=== PATIENT | male | born 1960 | race Caucasian/White ===

== ENCOUNTER → 2016-09-25 | Outpatient (CLI) | payer OTHER ==
[~2016-09-25] MED LIST: ALEV220C2 PO; ANOR1AER IN; ARNU1INH3 IN; COMBAER6 INH; DIVA250T PO; GEMF600T PO; HYDR-4274 PO; HYDR12.55 PO; IPRASOL4 IN; METF500T PO; MIRT30TA3 PO; RISP0.5T3 PO
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
== END ==
LOC: M PAIN 13:20
PROVIDERS: ATTEND Nurse Practitioner Family
DX: G89.29 Other chronic pain (principal); M96.1 Postlaminectomy syndrome, not elsewhere classified; M54.16 Radiculopathy, lumbar region; M54.42 Lumbago with sciatica, left side; J44.9 Chronic obstructive pulmonary disease, unspecified; G47.00 Insomnia, unspecified; E78.00 Pure hypercholesterolemia, unspecified; E11.9 Type 2 diabetes mellitus without complications; F41.9 Anxiety disorder, unspecified; F33.9 Major depressive disorder, recurrent, unspecified; Z87.442 Personal history of urinary calculi; Z79.899 Other long term (current) drug therapy; Z79.51 Long term (current) use of inhaled steroids; Z79.84 Long term (current) use of oral hypoglycemic drugs; F17.210 Nicotine dependence, cigarettes, uncomplicated; F10.21 Alcohol dependence, in remission; F19.21 Other psychoactive substance dependence, in remission

== ENCOUNTER → 2016-10-09 | Outpatient (CLI) | payer OTHER ==
[~2016-10-09] VITALS: Ht 180.3 cm; Wt 120.2 kg
[~2016-10-09] MED LIST changes: +NS 1,000 ML IV ONE; +PROPOFOL 200 MG/20 ML VIAL As Ordered ONE
--- NOTE | 2016-10-09 15:13 | ROOR ---
Patient Name: Patric Drake Procedure Date: 10/09/2016 2:55 PM Date of : 1960 Age: 56 Room: [facility] Gender: Male Note Status: Finalized Procedure: Colonoscopy Indications: Screening for colorectal malignant neoplasm Providers: Alphonse HOPE MD Referring MD: DOMINGO NEGRON NP Requesting Provider: Medicines: Monitored Anesthesia Care Complications: No immediate complications. Procedure: Pre-Anesthesia Assessment: - The heart rate, respiratory rate, oxygen saturations, blood pressure, adequacy of pulmonary ventilation, and response to care were monitored throughout the procedure. The Colonoscope was introduced through the anus and advanced to the cecum, identified by appendiceal orifice and ileocecal valve. The colonoscopy was performed without difficulty. The patient tolerated the procedure well. The quality of the bowel preparation was poor. Findings: The perianal and digital rectal examinations were normal. The entire examined colon appeared normal on direct and retroflexion views. Impression: - Preparation of the colon was poor. - The entire examined colon is normal on direct and retroflexion views. - No specimens collected. Recommendation: - Repeat colonoscopy in 1 year because the bowel preparation was poor. Alphonse Hope MD Alphonse HOPE MD 10/09/2016 3:12:53 PM This report has been signed electronically. Number of Addenda: 0 Note Initiated On: 10/09/2016 2:55 PM Estimated Blood Loss: Estimated blood loss: none.
[2016-10-09 15:38] VITALS: BP 149/92
== END ==
LOC: M OPP 13:22
PROVIDERS: ATTEND Internal Medicine Gastroenterology
DX: Z12.11 Encounter for screening for malignant neoplasm of colon (principal); J44.9 Chronic obstructive pulmonary disease, unspecified; F41.9 Anxiety disorder, unspecified; F32.9 Major depressive disorder, single episode, unspecified; E78.5 Hyperlipidemia, unspecified; E11.9 Type 2 diabetes mellitus without complications; R29.818 Other symptoms and signs involving the nervous system; K92.9 Disease of digestive system, unspecified; J30.2 Other seasonal allergic rhinitis; J30.81 Allergic rhinitis due to animal (cat) (dog) hair and dander; J30.89 Other allergic rhinitis; Z79.84 Long term (current) use of oral hypoglycemic drugs; Z79.899 Other long term (current) drug therapy

== ENCOUNTER → 2016-11-17 | Outpatient (CLI) | payer OTHER ==
[~2016-11-17] MED LIST changes: -HYDR-4274 PO; +HYDR50TA70 PO; -METF500T PO; +METF500T13 PO; -NS 1,000 ML IV ONE; -PROPOFOL 200 MG/20 ML VIAL As Ordered ONE
--- NOTE | 2016-11-17 14:53 | REP ---
REASON: Back pain. Status post laminectomy. COMPARISON EXAMINATION: 12/13/2015. Once again, there is loss of posterior disc space height and disc hydrational signal from L1-2 to L5-S1. Note is again made of a rudimentary disc at S1-2 status quo. [place] disc space hydrational signal loss and disc space height loss is again seen at L5-S1. No abnormal signal has developed in the imaged portion of the spinal cord. Vertebral body height and alignment is unchanged. The marrow signal is again seen to be within normal limits. Modic type 3 endplate changes are seen posteriorly at L5-S1. Gadolinium utilized for the post gadolinium enhanced images 24 mL of ProHance. At the L1-2 level there is no change. There is no disc herniation, foraminal narrowing, or central canal stenosis. Mild degenerative facet joint changes are present bilaterally. At the L2-3 level there is no change. There is a minimal broad based annular bulge. There is no disc herniation, foraminal narrowing, or central canal stenosis. There is mild bilateral facet joint changes status quo. At the L3-4 level a broad based annular bulge is noted status quo. This causes slight compression of the anterior thecal sac which is unchanged. There is no disc extrusion, central canal stenosis, or foraminal narrowing. At the L4-5 level note is again made of a large broad based annular bulge seen in conjunction with degenerative facet joint changes bilaterally and thickening of the ligamentum flava. The factors in concert are causing moderate central canal stenosis which appears to have increased from the prior exam. There is no change in the appearance of the neural foramina. There is no evidence of L4 nerve compression. There is no evidence of an acute disc extrusion. At the L5-S1 level there is a broad based annular bulge seen in conjunction with degenerative facet joint changes bilaterally and thickening of the ligamentum flava. There is an unchanged posterior disc protrusion seen centrally and in the left paracentral region with disc osteophyte formation status quo. The small amount of disc material does migrate inferiorly. This too is unchanged in appearance. Once again, there is some compression of the anterior thecal sac which appears stable. The left S1 nerve compression seen previously appears less and the left and right foraminal nerve compression due to the aforementioned discogenic changes on degenerative facet joint changes appear stable. IMPRESSION: Multilevel discogenic changes with particular attention drawn to the L4-5 and L5-S1 levels as described above. Signed by Ronnell Basilio DO 11/17/2016 04:39 P
== END ==
LOC: M RAD 12:27
PROVIDERS: ATTEND Nurse Practitioner Family
DX: M51.16 Intervertebral disc disorders with radiculopathy, lumbar region (principal); M96.1 Postlaminectomy syndrome, not elsewhere classified

== ENCOUNTER → 2016-11-24 | Outpatient (CLI) | payer OTHER ==
--- NOTE | 2016-12-17 00:29 | ECWPNPC ---
PATIENT NAME: SHABBIR RICO : 1960 GENDER: MALE VISIT DATE: 11/24/2016 DISCHARGE DATE: 11/24/16 1520 VISIT LOCKED DATE TIME: PHYSICIAN: GRANT BLANCHARD RESOURCE: GRANT BLANCHARD REASON FOR APPOINTMENT 1. REVIEW MRI HISTORY OF PRESENT ILLNESS HISTORY OF PRESENT ILLNESS: PAIN THE PATIENT DESCRIBES THE PAIN... FALL RISK SCREENING: SCREENING :NO FALLS IN THE PAST YEAR TODAY'S VISIT: NOTES: RATES PAIN LEVEL 7/10. DESCRIBES PAIN ACHING, STABBING AND THROBBING. PAIN IS CENTERED LEFT SIDE LOW BACK WITH RADIATION TO LEFT LEG TO THE LEVEL OF THE FOOT.. CURRENT MEDICATIONS TAKING HYDROCHLOROTHIAZIDE 12.5 MG TABLET TAKE ONE TABLET BY MOUTH ONCE DAILY ORAL TAKING GEMFIBROZIL 600 MG TABLET TAKE ONE TABLET BY MOUTH TWICE DAILY ORAL TAKING MIRTAZAPINE 30 MG TABLET TAKE ONE TABLET BY MOUTH AT BEDTIME ORAL TAKING DIVALPROEX SODIUM 250 MG TABLET DELAYED RELEASE TAKE THREE TABLETS BY MOUTH AT BEDTIME ORAL TAKING ARNUITY ELLIPTA 200 MCG/ACT AEROSOL POWDER BREATH ACTIVATED INHALE ONE PUFF BY MOUTH ONCE DAILY INHALATION TAKING ANORO ELLIPTA 62.5-25 MCG/INH AEROSOL POWDER BREATH ACTIVATED INHALE ONE PUFF BY MOUTH ONCE DAILY INHALATION TAKING METFORMIN HCL ER 500 MG TABLET EXTENDED RELEASE 24 HOUR TAKE TWO TABLETS BY MOUTH EVERY MORNING AND ONE TABLET EVERY EVENING ORAL TAKING GABAPENTIN 300 MG CAPSULE 1 CAPSULE ORALLY BEFORE BEDTIME TAKING BUPROPION HCL 100 MG TABLET 1 TABLET ORALLY BID NOT-TAKING RISPERIDONE 0.5 MG TABLET TAKE ONE TABLET BY MOUTH AT BEDTIME ORAL NOT-TAKING HYDROXYZINE HCL 50 MG TABLET TAKE ONE TABLET BY MOUTH THREE TIMES DAILY NEEDED ORAL MEDICATION LIST REVIEWED AND RECONCILED WITH THE PATIENT PAST MEDICAL HISTORY LOW BACK PAIN COPD INSOMNIA CARDIAC ARRHYTHMIA HIGH CHOLESTEROL TYPE 2 DIABETES DEPRESSION / ANXIETY/ HX OF DRUG AND ALCOHOL USE KIDNEY STONES ALLERGIES N.K.D.A. SURGICAL HISTORY LAMINECTOMY 1987 THROAT 1976 RIGHT SHOULDER 2005 RIGHT ANKLE 1979 HOSPITALIZATION/MAJOR DIAGNOSTIC PROCEDURE SEE ABOVE REVIEW OF SYSTEMS REVIEWED BY: PROVIDER: GRANT GIORDANO . CONSTITUTIONAL: ANY CHANGE IN YOUR MEDICAL CONDITION? NO . CHILLS NO . FEVER NO . INFECTION: DO YOU HAVE NEW INFECTIONS? NO . DO YOU HAVE HISTORY OF MRSA? NO . MUSCULOSKELETAL: ANY NEW PATTERNS OF PAIN OR NUMBNESS? NO . GASTROENTEROLOGY: ANY NEW CHANGE IN BOWEL CONTROL? NO . GENITOURINARY: ANY NEW CHANGE IN BLADDER CONTROL? NO . IS THERE A CHANCE YOU COULD BE ? NO . HEMATOLOGY/LYMPH: DO YOU TAKE ANY BLOOD THINNERS? (FOR EXAMPLE- COUMADIN, PLAVIX, AGGRENOX, PLATEL, PRADAXA, OR XARELTO) NO . WHEN WAS YOUR LAST DOSE? DATE: TIME: . NEUROLOGY: HAVE YOU FALLEN IN THE PAST 6 MONTHS? NO . ANY NEW EXTREMITY NUMBNESS OR WEAKNESS? NO . CARDIOLOGY: DO YOU HAVE A PACEMAKER OR DEFIBRILLATOR? NO . RESPIRATORY: HAVE YOU BEEN SICK IN THE PAST WEEK? NO . FEVER NO . FLU LIKE SYMPTOMS? NO . COUGH NO . INTEGUMENTARY: DO YOU HAVE ANY RASHES OR OPEN SORES? NO . ALLERGIC/IMMUNO: ARE YOU ALLERGIC TO SHELLFISH OR IV DYE? NO . ANY NEW ALLERGIES? NO . PSYCHIATRIC: DO YOU HAVE THOUGHTS OF HURTING YOURSELF OR SOMEONE ELSE? NO . ARE YOU ABUSED, NEGLECTED, OR IN AN UNSAFE ENVIRONMENT? NO . ENDOCRINOLOGY: ARE YOU DIABETIC? YES . OTHER: DO YOU NEED ANY PRESCRIPTIONS? YES, PAIN MEDS . IF YES, PLEASE LIST: ____ . ANY NEW PROBLEMS WITH YOUR MEDICATIONS? NO . WHEN DID YOU LAST EAT? ____ . WHEN DID YOU LAST DRINK? ____ . WHAT DID YOU LAST DRINK? ____ . NAME OF PERSON DRIVING YOU HOME? ____ . DO YOU HAVE ANY OTHER QUESTIONS OR CONCERNS NO . VITAL SIGNS WT 254 LBS, HT 71 IN, BMI 35.42 INDEX, BP 144/87 MM HG, HR 83 /MIN, RR 18 /MIN, TEMP 97.8 F, OXYGEN SAT % 96%, SAFE IN ENV? (Y/N) Y, NA INITIALS AW 1354, REVIEWED BY: EM. EXAMINATION GENERAL EXAMINATION: PSYCHALERT , ORIENTED X 3 , APPROPRIATE MOOD AND AFFECT . LUNGS:SHORT OF BREATH ON EXERTION, DECREASED AIR ENTRY AT BASES. NO WHEEZES, RALES OR RHONCHI. HEART:HEART RATE REGULAR, NORMAL S1S2, NO MURMURS, CLICK OR RUBS. MUSCULOSKELETAL:POSTURE UPRIGHT, GAIT ANTALGIC. , MUSCLE STRENGTH TESTING 5/5 BILATERAL UPPER, 4+LLE, 5/5 RLE. POINT TENDERNESS OVER LUMBAR SPINOUS PROCESSES AND LEFT LUMBOSACRAL AXIS. SLOW TO RISE TO STANDING POSITION. POSTURE UPRIGHT.. NEUROLOGIC EXAM:DECREASED SENSATION LEFT LOWER EXTREMITY ONLY . DTR'S 2+ LEFT LOWER EXTREMITY, 1+ RIGHT LOWER EXTREMITY. . DIAGNOSTIC TESTS REVIEWEDMRI LUMBAR SPINE COMPLETED 11/17/16 REVIEWED WITH PATIENT. ASSESSMENTS LUMBAR POST-LAMINECTOMY SYNDROME - M96.1 (PRIMARY) LUMBAR RADICULOPATHY - M54.16 LUMBAGO WITH SCIATICA, LEFT SIDE - M54.42 OTHER CHRONIC PAIN - G89.29 TREATMENT LUMBAR POST-LAMINECTOMY SYNDROME START PERCOCET TABLET, 5-325 MG, 1 TABLET NEEDED, ORALLY, EVERY 8-12 HOURS MDD=2, 30 DAY(S), 30, REFILLS 0 NOTES: INTRALAMINAL LUMBAR EPIDURAL CONTINUE GABAPENTIN AT BEDTIME HOLD BLOOD SUGAR MEDS AM OF PROCEDURE. ,WHAT IS LUMBAR EPIDURAL INJECTION? MATERIAL WAS PRINTED, REVIEWED AND GIVEN TO PT, OPTION FOR EPIDURAL INJECTIONS WERE DISCUSSED WITH THE PATIENT. FDA CONCERNS AND WARNING WERE REVIEWED INCLUDING THE RISK OF BLEEDING, RISK OF INFECTION, RISK OF INCREASED PAIN OR NEURALGIA, AND RISK OF PARALYSIS. PATIENT'S QUESTIONS WERE ANSWERED AND HE/SHE WISHES TO MOVE FORWARD WITH EPIDURAL INJECTION. CLINICAL NOTES: ISTOP REGISTRY REVIEWED AND DEMNOSTRATES COMPLLIANCE. REFERRAL TO:[facility])NEUROSURGERY REASON:L5 DISC EXTRUSION WITH RADICULAR SYMPTOMS AND PARESTHESIA PROCEDURE CODES FA211 ESTABILISHED PATIENT [facility] FACILITY CHARGE DISPOSITION & COMMUNICATION FOLLOW UP AFTER INJECTION (REASON: CHECK AUTH FOR INTRALAMINAL LUMBAR EPIDURAL) ELECTRONICALLY SIGNED BY CRISTAL GALEAS ON 12/16/2016 AT 08:32 AM EDT DISCLAIMER : THIS IS A VISIT SUMMARY EXTRACTED FROM THE [employer] CHART. IT IS NOT A COPY OF THE [employer] PROGRESS NOTE. ANKUR
== END | disposition home or self-care (01) ==
LOC: M PAIN 13:00
PROVIDERS: ATTEND Nurse Practitioner Family
DX: G89.29 Other chronic pain (principal); M96.1 Postlaminectomy syndrome, not elsewhere classified; M54.16 Radiculopathy, lumbar region; M54.42 Lumbago with sciatica, left side; J44.9 Chronic obstructive pulmonary disease, unspecified; G47.00 Insomnia, unspecified; E78.00 Pure hypercholesterolemia, unspecified; E11.9 Type 2 diabetes mellitus without complications; F41.9 Anxiety disorder, unspecified; F33.9 Major depressive disorder, recurrent, unspecified; Z87.442 Personal history of urinary calculi; F10.21 Alcohol dependence, in remission; F19.21 Other psychoactive substance dependence, in remission; Z79.899 Other long term (current) drug therapy; Z79.84 Long term (current) use of oral hypoglycemic drugs; Z79.51 Long term (current) use of inhaled steroids

== ENCOUNTER → 2016-12-23 | Outpatient (CLI) | payer OTHER ==
[~2016-12-23] MED LIST changes: +BUPR150T3 PO; +ERYTOIN8 OD; +OXYC1TAB23 PO
--- NOTE | 2017-01-08 00:48 | ECWPNPC ---
PATIENT NAME: SHABBIR RICO : 1960 GENDER: MALE VISIT DATE: 12/23/2016 DISCHARGE DATE: 12/23/16 1326 VISIT LOCKED DATE TIME: PHYSICIAN: GRANT BLANCHARD RESOURCE: GRANT BLANCHARD REASON FOR APPOINTMENT 1. POST LE HISTORY OF PRESENT ILLNESS HISTORY OF PRESENT ILLNESS: PAIN THE PATIENT DESCRIBES THE PAIN... FALL RISK SCREENING: SCREENING :NO FALLS IN THE PAST YEAR TODAY'S VISIT: NOTES: HAD TO CANCEL LESI DUE TO DIARRHEA AND SORE THROAT. RATES PAIN TODAY 11/02. PAIN CENTERED ACROSS LOW BACK AND DOWN LEFT LEG TO LEVEL OF THE FOOT. IS WILKINSON HAVING NEW PAIN IN RIGHT GROIN THIS IS PRESNT IF GOING UP STAIRS AND WHEN MOVING SIDEWAYS AT WORK. REPORTS HAS APPOINTMENT WITH DR COOPER/NEUROSURGERY ON 01/07/17.. CURRENT MEDICATIONS TAKING HYDROCHLOROTHIAZIDE 12.5 MG TABLET TAKE ONE TABLET BY MOUTH ONCE DAILY ORAL TAKING GEMFIBROZIL 600 MG TABLET TAKE ONE TABLET BY MOUTH TWICE DAILY ORAL TAKING MIRTAZAPINE 30 MG TABLET TAKE ONE TABLET BY MOUTH AT BEDTIME ORAL TAKING DIVALPROEX SODIUM 250 MG TABLET DELAYED RELEASE TAKE THREE TABLETS BY MOUTH AT BEDTIME ORAL TAKING ARNUITY ELLIPTA 200 MCG/ACT AEROSOL POWDER BREATH ACTIVATED INHALE ONE PUFF BY MOUTH ONCE DAILY INHALATION TAKING ANORO ELLIPTA 62.5-25 MCG/INH AEROSOL POWDER BREATH ACTIVATED INHALE ONE PUFF BY MOUTH ONCE DAILY INHALATION TAKING METFORMIN HCL ER 500 MG TABLET EXTENDED RELEASE 24 HOUR TAKE TWO TABLETS BY MOUTH EVERY MORNING AND ONE TABLET EVERY EVENING ORAL TAKING GABAPENTIN 300 MG CAPSULE 1 CAPSULE ORALLY BEFORE BEDTIME TAKING PERCOCET 5-325 MG TABLET 1 TABLET NEEDED ORALLY EVERY 8-12 HOURS MDD=2 TAKING BUPROPION HCL 75 MG TABLET 2 TABLEST ORALLY TWICE A DAY NOT-TAKING RISPERIDONE 0.5 MG TABLET TAKE ONE TABLET BY MOUTH AT BEDTIME ORAL NOT-TAKING HYDROXYZINE HCL 50 MG TABLET TAKE ONE TABLET BY MOUTH THREE TIMES DAILY NEEDED ORAL DISCONTINUED BUPROPION HCL 100 MG TABLET 1 TABLET ORALLY BID MEDICATION LIST REVIEWED AND RECONCILED WITH THE PATIENT PAST MEDICAL HISTORY LOW BACK PAIN COPD INSOMNIA CARDIAC ARRHYTHMIA HIGH CHOLESTEROL TYPE 2 DIABETES DEPRESSION / ANXIETY/ HX OF DRUG AND ALCOHOL USE KIDNEY STONES ALLERGIES N.K.D.A. REVIEW OF SYSTEMS REVIEWED BY: PROVIDER: GRANT GIORDANO . CONSTITUTIONAL: ANY CHANGE IN YOUR MEDICAL CONDITION? NO . CHILLS NO . FEVER NO . INFECTION: DO YOU HAVE NEW INFECTIONS? NO . DO YOU HAVE HISTORY OF MRSA? NO . MUSCULOSKELETAL: ANY NEW PATTERNS OF PAIN OR NUMBNESS? YES, PAIN GOING INTO RIGHT GROIN AREA . GASTROENTEROLOGY: ANY NEW CHANGE IN BOWEL CONTROL? NO . GENITOURINARY: ANY NEW CHANGE IN BLADDER CONTROL? NO . IS THERE A CHANCE YOU COULD BE ? NO . HEMATOLOGY/LYMPH: DO YOU TAKE ANY BLOOD THINNERS? (FOR EXAMPLE- COUMADIN, PLAVIX, AGGRENOX, PLATEL, PRADAXA, OR XARELTO) NO . WHEN WAS YOUR LAST DOSE? DATE: TIME: . NEUROLOGY: HAVE YOU FALLEN IN THE PAST 6 MONTHS? NO . ANY NEW EXTREMITY NUMBNESS OR WEAKNESS? NO . CARDIOLOGY: DO YOU HAVE A PACEMAKER OR DEFIBRILLATOR? NO . RESPIRATORY: HAVE YOU BEEN SICK IN THE PAST WEEK? NO . FEVER NO . FLU LIKE SYMPTOMS? NO . COUGH NO . INTEGUMENTARY: DO YOU HAVE ANY RASHES OR OPEN SORES? NO . ALLERGIC/IMMUNO: ARE YOU ALLERGIC TO SHELLFISH OR IV DYE? NO . ANY NEW ALLERGIES? NO . PSYCHIATRIC: DO YOU HAVE THOUGHTS OF HURTING YOURSELF OR SOMEONE ELSE? NO . ARE YOU ABUSED, NEGLECTED, OR IN AN UNSAFE ENVIRONMENT? NO . ENDOCRINOLOGY: ARE YOU DIABETIC? YES . OTHER: DO YOU NEED ANY PRESCRIPTIONS? YES . IF YES, PLEASE LIST: PERCOCET . ANY NEW PROBLEMS WITH YOUR MEDICATIONS? NO . WHEN DID YOU LAST EAT? ____ . WHEN DID YOU LAST DRINK? ____ . WHAT DID YOU LAST DRINK? ____ . NAME OF PERSON DRIVING YOU HOME? ____ . DO YOU HAVE ANY OTHER QUESTIONS OR CONCERNS NO . VITAL SIGNS WT 243 LBS, HT 71 IN, BMI 33.89 INDEX, BP 155/88 MM HG, HR 89 /MIN, RR 18 /MIN, TEMP 97.6 F, OXYGEN SAT % 95%, NA INITIALS CM 1305. EXAMINATION GENERAL EXAMINATION: PSYCHALERT , ORIENTED X 3 , APPROPRIATE MOOD AND AFFECT . LUNGS:SHORT OF BREATH ON EXERTION, DECREASED AIR ENTRY AT BASES. NO WHEEZES, RALES OR RHONCHI. HEART:HEART RATE REGULAR, NORMAL S1S2, NO MURMURS, CLICK OR RUBS. MUSCULOSKELETAL:POSTURE UPRIGHT, GAIT ANTALGIC WITH LEFT LEG LIMP. POINT TENDERNESS OVER LUMBAR SPINOUS PROCESSES AND LEFT LUMBOSACRAL AXIS. SLOW TO RISE TO STANDING POSITION. . NEUROLOGIC EXAM:DECREASED SENSATION LEFT LOWER EXTREMITY ONLY . DTR'S 2+ LEFT LOWER EXTREMITY, 1+ RIGHT LOWER EXTREMITY. . DIAGNOSTIC TESTS REVIEWEDMRI LUMBAR SPINE COMPLETED 11/17/16 REVIEWED WITH PATIENT. ASSESSMENTS LUMBAR POST-LAMINECTOMY SYNDROME - M96.1 (PRIMARY) LUMBAR RADICULOPATHY - M54.16 LUMBAGO WITH SCIATICA, LEFT SIDE - M54.42 OTHER CHRONIC PAIN - G89.29 TREATMENT LUMBAR POST-LAMINECTOMY SYNDROME REFILL PERCOCET TABLET, 5-325 MG, 1 TABLET NEEDED, ORALLY, EVERY 8-12 HOURS MDD=2, 30 DAY(S), 30, REFILLS 0 NOTES: USE PAIN MEDS INFREQUENTLY. KEEP APPOINTMENT WITH DR COOPER. COMPLETE LUMBAR EPIDURAL ON 12/31/16HOLD METFORMIN MORNING OF PROCEDURE. PROCEDURE CODES FA211 ESTABILISHED PATIENT [facility] CHARGE DISPOSITION & COMMUNICATION FOLLOW UP KEEP APPONT SCHED FOR LESB (REASON: LOW BACK) ELECTRONICALLY SIGNED BY CRISTAL GALEAS ON 01/07/2017 AT 05:20 PM EDT DISCLAIMER : THIS IS A VISIT SUMMARY EXTRACTED FROM THE [employer] CHART. IT IS NOT A COPY OF THE [employer] PROGRESS NOTE. ANKUR
== END ==
LOC: M PAIN 13:00
PROVIDERS: ATTEND Nurse Practitioner Family
DX: G89.29 Other chronic pain (principal); M96.1 Postlaminectomy syndrome, not elsewhere classified; M54.16 Radiculopathy, lumbar region; M54.42 Lumbago with sciatica, left side; J44.9 Chronic obstructive pulmonary disease, unspecified; G47.00 Insomnia, unspecified; E78.00 Pure hypercholesterolemia, unspecified; E11.9 Type 2 diabetes mellitus without complications; F33.9 Major depressive disorder, recurrent, unspecified; F41.9 Anxiety disorder, unspecified; F10.21 Alcohol dependence, in remission; F19.21 Other psychoactive substance dependence, in remission; Z87.442 Personal history of urinary calculi; Z79.899 Other long term (current) drug therapy; Z79.51 Long term (current) use of inhaled steroids; Z79.84 Long term (current) use of oral hypoglycemic drugs

== ENCOUNTER → 2016-12-31 | Outpatient (CLI) | payer OTHER ==
[~2016-12-31] MED LIST changes: +ISOVUE-M 300 61% 15ML VIAL (Q9967) As Ordered ONE; +LIDOCAINE 1% SDV INJ 30 ML VIAL As Ordered ONE; +diazePAM 5 MG TAB As Ordered ONE; +methylPREDNISolone SUSP 40 MG/ML (DEPO-medrol) VIAL (J1030) As Ordered ONE; +oxyCODONE 5MG TAB As Ordered ONE
--- NOTE | 2016-12-31 16:48 | REP ---
Partial lumbar spine series: Single view: History: Epidural injection for pain. 24 seconds of fluoroscopy time is reported. Findings: A single last image hold fluoroscopic spot radiographs of the lumbosacral junction documents needle position and contrast injection associated with lumbar epidural injection procedure. Signed by Clemente Barrow MD 12/31/2016 04:55 P
--- NOTE | 2017-01-01 00:33 | ECWPNPC ---
PATIENT NAME: SHABBIR RIOC : 1960 GENDER: MALE VISIT DATE: 12/31/2016 DISCHARGE DATE: 12/31/16 1632 VISIT LOCKED DATE TIME: PHYSICIAN: JOELLEN HANCOCK RESOURCE: JOELLEN HANCOCK REASON FOR APPOINTMENT 1. INTERLAMINAL LE HISTORY OF PRESENT ILLNESS HISTORY OF PRESENT ILLNESS: PAIN THE PATIENT DESCRIBES THE PAIN... FALL RISK SCREENING: SCREENING :NO FALLS IN THE PAST YEAR CURRENT MEDICATIONS TAKING HYDROCHLOROTHIAZIDE 12.5 MG TABLET TAKE ONE TABLET BY MOUTH ONCE DAILY ORAL , NOTES: 1000 TAKING GEMFIBROZIL 600 MG TABLET TAKE ONE TABLET BY MOUTH TWICE DAILY ORAL , NOTES: 12/30/16@999 TAKING MIRTAZAPINE 30 MG TABLET TAKE ONE TABLET BY MOUTH AT BEDTIME ORAL , NOTES: 12/30/16@1929 TAKING DIVALPROEX SODIUM 250 MG TABLET DELAYED RELEASE TAKE THREE TABLETS BY MOUTH AT BEDTIME ORAL , NOTES: 12/30/16@193 TAKING ARNUITY ELLIPTA 200 MCG/ACT AEROSOL POWDER BREATH ACTIVATED INHALE ONE PUFF BY MOUTH ONCE DAILY INHALATION , NOTES: 0530 TAKING ANORO ELLIPTA 62.5-25 MCG/INH AEROSOL POWDER BREATH ACTIVATED INHALE ONE PUFF BY MOUTH ONCE DAILY INHALATION , NOTES: 0530 TAKING METFORMIN HCL ER 500 MG TABLET EXTENDED RELEASE 24 HOUR TAKE TWO TABLETS BY MOUTH EVERY MORNING AND ONE TABLET EVERY EVENING ORAL , NOTES: 1000 TAKING BUPROPION HCL 75 MG TABLET 2 TABLEST ORALLY TWICE A DAY, NOTES: 1230 TAKING PERCOCET 5-325 MG TABLET 1 TABLET NEEDED ORALLY EVERY 8-12 HOURS MDD=2, NOTES: 12/29/16@1000 TAKING ALBUTEROL SULFATE 108 (90 BASE) MCG/ACT AEROSOL POWDER BREATH ACTIVATED 1 PUFF NEEDED INHALATION EVERY 4 HRS, NOTES: 1230 NOT-TAKING RISPERIDONE 0.5 MG TABLET TAKE ONE TABLET BY MOUTH AT BEDTIME ORAL NOT-TAKING HYDROXYZINE HCL 50 MG TABLET TAKE ONE TABLET BY MOUTH THREE TIMES DAILY NEEDED ORAL DISCONTINUED GABAPENTIN 300 MG CAPSULE 1 CAPSULE ORALLY BEFORE BEDTIME MEDICATION LIST REVIEWED AND RECONCILED WITH THE PATIENT PAST MEDICAL HISTORY LOW BACK PAIN COPD INSOMNIA CARDIAC ARRHYTHMIA HIGH CHOLESTEROL TYPE 2 DIABETES DEPRESSION / ANXIETY/ HX OF DRUG AND ALCOHOL USE KIDNEY STONES ALLERGIES N.K.D.A. SOCIAL HISTORY GENERAL: TOBACCO USE ARE YOU A:CURRENT SMOKER HOW MANY CIGARETTES A DAY DO YOU SMOKE?21-30 HOW OFTEN DO YOU SMOKE CIGARETTES?EVERY DAY PATIENT COUNSELED ON THE DANGERS OF TOBACCO USE AND URGED TO QUIT:12/31/2016 ARE YOU INTERESTED IN QUITTING?THINKING ABOUT QUITTING PREVIOUS QUIT ATTEMPTS?NO. COUNSELED THE PATIENT ON SMOKING CESSATION, EDUCATION [id number]/2017 PT IS NOT CURRENTLY INTERESTED IN QUITTING SMOKING BUT KNOWS HE IS SHORT OF BREATHE WITH MINIMAL EXERTION AND HE" IS GETTING OLDER, I KNOW I WILL HAVE TO QUIT". ALCOHOL SCREENING DID YOU HAVE A DRINK CONTAINING ALCOHOL IN THE PAST YEAR?NO POINTS0 INTERPRETATIONNEGATIVE RECREATIONAL DRUG USE DRUG USE? DENIES ANY ALCOHOL OR DRUG USE. CAFFEINE CAFFEINE USE?YES HOW OFTEN AND HOW MUCH? SODA EVERY DAY DIET: NO CONCENTRATED SWEETS.. EXERCISE: WALKS, ALOT OF PHYSICAL LABOR WITH WORK. YAZIDI [id number] [employer]ANGEL[employer] LANGUAGE LANGUAGES SPOKEN:CROATIAN LEARNING BARRIERS / SPECIAL NEEDS BARRIERS TO LEARNING?NO HEARING IMPAIRED?NO VISION IMPAIRED?YES :CORRECTIVE LENSES READINESS TO LEARN?YES LEARNING PREFERENCES?NO LEARNING CAPABILITIES PRESENT?YES EMOTIONAL BARRIERS?NO SPECIAL DEVICES?NO HYDROGEN POWER PLANT ENGINEER NEEDED?NO PAIN CLINIC PFS, CLERGY, PUBLIC HEALTH REFERRALS PFS REFERRAL NEEDED?NO CLERGY REFERRAL NEEDED?NO PUBLIC HEALTH REFERRAL NEEDED?NO WAS THE PROVIDER NOTIFIED OF ANY PERTINENT INFO?NO HAS THE PATIENT BEEN EDUCATED REGARDING HIS/HER PLAN OF CARE?YES HAS THE PATIENT BEEN EDUCATED REGARDING PAIN, THE RISK FOR PAIN, THE IMPORTANCE OF EFFECTIVE PAIN MANAGEMENT, AND THE PAIN ASSESSMENT PROCESS?YES PATIENT: ____. 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 REVIEW OF SYSTEMS REVIEWED BY: PROVIDER: . CONSTITUTIONAL: ANY CHANGE IN YOUR MEDICAL CONDITION? NO . CHILLS NO . FEVER NO . INFECTION: DO YOU HAVE NEW INFECTIONS? NO . DO YOU HAVE HISTORY OF MRSA? NO . MUSCULOSKELETAL: ANY NEW PATTERNS OF PAIN OR NUMBNESS? NO . GASTROENTEROLOGY: ANY NEW CHANGE IN BOWEL CONTROL? NO . GENITOURINARY: ANY NEW CHANGE IN BLADDER CONTROL? NO . IS THERE A CHANCE YOU COULD BE ? NO . HEMATOLOGY/LYMPH: DO YOU TAKE ANY BLOOD THINNERS? (FOR EXAMPLE- COUMADIN, PLAVIX, AGGRENOX, PLATEL, PRADAXA, OR XARELTO) NO . WHEN WAS YOUR LAST DOSE? DATE: TIME: . NEUROLOGY: HAVE YOU FALLEN IN THE PAST 6 MONTHS? NO . ANY NEW EXTREMITY NUMBNESS OR WEAKNESS? NO . CARDIOLOGY: DO YOU HAVE A PACEMAKER OR DEFIBRILLATOR? NO . RESPIRATORY: HAVE YOU BEEN SICK IN THE PAST WEEK? NO . FEVER NO . FLU LIKE SYMPTOMS? NO . COUGH NO . INTEGUMENTARY: DO YOU HAVE ANY RASHES OR OPEN SORES? NO . ALLERGIC/IMMUNO: ARE YOU ALLERGIC TO SHELLFISH OR IV DYE? NO . ANY NEW ALLERGIES? NO . PSYCHIATRIC: DO YOU HAVE THOUGHTS OF HURTING YOURSELF OR SOMEONE ELSE? NO . ARE YOU ABUSED, NEGLECTED, OR IN AN UNSAFE ENVIRONMENT? NO . ENDOCRINOLOGY: ARE YOU DIABETIC? YES . OTHER: DO YOU NEED ANY PRESCRIPTIONS? NO . IF YES, PLEASE LIST: ____ . ANY NEW PROBLEMS WITH YOUR MEDICATIONS? NO . WHEN DID YOU LAST EAT? ____1100 . WHEN DID YOU LAST DRINK? ____1330 . WHAT DID YOU LAST DRINK? ____COKE . NAME OF PERSON DRIVING YOU HOME? ____[employer] . DO YOU HAVE ANY OTHER QUESTIONS OR CONCERNS NO . VITAL SIGNS WT 250 LBS, HT 71 IN, BMI 34.86 INDEX, BP 145/91 MM HG, HR 101 /MIN, RR 18 /MIN, TEMP 98.8 F, OXYGEN SAT % 94%, NA INITIALS AW 1404, REVIEWED BY: VD. ASSESSMENTS INTERVERTEBRAL DISC DISORDER WITH RADICULOPATHY OF LUMBOSACRAL REGION - M51.17 (PRIMARY) PROCEDURES PRE PROCEDURE DIAGNOSIS LUMBOSACRAL DISC DISORDER WITH RADICULOPATHY POST PROCEDURE DIAGNOSIS LUMBOSACRAL DISC DISORDER WITH RADICULOPATHY PROCEDURE LUMBAR EPIDURAL STEROID INJECTION UNDER FLUOROSCOPIC GUIDANCE SURGEON DR. JOELLEN HANCOCK OIL FILTERS INSPECTOR NONE ANESTHESIA LOCAL PRE PROCEDURE NOTE THE PATIENT HAS A HISTORY OF CHRONIC LOW BACK PAIN. I EVALUATE THE PATIENT AND REVIEWED THE CHART. I WENT OVER THE RISKS, ALTERNATIVES, AND BENEFITS ASSOCIATED WITH THIS PROCEDURE. THE PATIENT WOULD LIKE TO PROCEED AND GIVE CONSENT TO PERFORMED THE PROCEDURE. THE PATIENT DENIES UNEXPLAINABLE WEIGHT LOSS, FEVER, CHILLS, OR NEW CHANGES IN URINARY OR BOWEL CONTROL. DESCRIPTION OF PROCEDURE THE PATIENT WAS BROUGHT TO THE PROCEDURE ROOM AND PLACED IN THE PRONE POSITION. THE LUMBOSACRAL AREA WAS CLEANED WITH BETADINE SOLUTION AND DRAPED ASEPTICALLY. THE PROCEDURE WAS DONE UNDER STERILE CONDITIONS. I CHECKED LATERALITY AND THE LEVEL WHERE THE PROCEDURE WAS GOING TO BE PERFORMED WITH THE PATIENT AND THE SUPPORTING STAFF AT THE MOMENT OF THE TIME OUT IN THE PROCEDURE ROOM. UNDER FLUOROSCOPIC GUIDANCE, THE TARGET POINT WAS SELECTED AT THE INTERLAMINAR LEVEL OF L5-S1. LIDOCAINE WAS USED TO NUMB THE SKIN AND THE SUBCUTANEOUS TISSUE BELOW IT. EPIDURAL TUOHY NEEDLE, 17-GAUGE, WAS ADVANCED UNDER FLUOROSCOPIC GUIDANCE AND FOLLOWING PATIENT FEEDBACK UNTIL THE EPIDURAL SPACE WAS REACHED, 7 CM DEEP INTO THE SKIN BY THE LOSS OF RESISTANCE TECHNIQUE. ISOVUE M DYE 30%, 0.25 ML, WAS INJECTED SHOWING ADEQUATE SPREAD OF THE DYE. THEN, A SOLUTION OF 3 ML OF NORMAL SALINE WITH DEPO-MEDROL 60 MG WAS INJECTED SLOWLY FOLLOWING PATIENT FEEDBACK. THERE WAS NO EVIDENCE OF BLOOD, PARESTHESIA OR CEREBROSPINAL FLUID DURING THE PROCEDURE. THE PATIENT WAS SENT TO THE RECOVERY ROOM. THE PATIENT WAS MOVING THE EXTREMITIES AND DOING WELL. THERE WAS NO COMPLICATION DURING THE PROCEDURE. FLUOROSCOPY TIME WAS 24 SECONDS. POST PROCEDURE NOTE THE PATIENT WILL BE SEEN IN A FOLLOW UP IN THE NEXT FEW WEEKS. INSTRUCTIONS WERE GIVEN, QUESTIONS WERE ANSWERED, AND THE PATIENT EXPRESSED UNDERSTANDING AND AGREES WITH THE PLAN. I, SHARON LOPES, DOCUMENTED THE ABOVE INFORMATION ACTING A SCRIBE FOR DR. HANCOCK. I HAVE REVIEWED THE ABOVE DOCUMENT, WRITTEN BY SHARON NUNN AND I VERIFY THAT IT IS [facility] DIAGNOSTIC [facility] FLUORO GUIDE SPINE INJECTION (PAIN)[id number] PROCEDURE CODES 77209 LUMBAR/SACRAL W/ IMAGING 6045F RADXPS IN END [id number] PXD DISPOSITION & COMMUNICATION FOLLOW UP 3 WEEKS ELECTRONICALLY SIGNED BY JOELLEN HANCOCK MD ON 12/31/2016 AT 05:21 PM EDT DISCLAIMER : THIS IS A VISIT SUMMARY EXTRACTED FROM THE [employer] CHART. IT IS NOT A COPY OF THE [employer] PROGRESS NOTE. ANKUR
== END | disposition home or self-care (01) ==
LOC: M PAIN 14:00
PROVIDERS: ATTEND Anesthesiology
DX: G89.29 Other chronic pain (principal); M51.17 Intervertebral disc disorders with radiculopathy, lumbosacral region; J44.9 Chronic obstructive pulmonary disease, unspecified; G47.00 Insomnia, unspecified; I49.9 Cardiac arrhythmia, unspecified; E78.00 Pure hypercholesterolemia, unspecified; E11.9 Type 2 diabetes mellitus without complications; F33.9 Major depressive disorder, recurrent, unspecified; F41.9 Anxiety disorder, unspecified; F19.21 Other psychoactive substance dependence, in remission; F10.21 Alcohol dependence, in remission; Z87.442 Personal history of urinary calculi; Z79.899 Other long term (current) drug therapy; Z79.51 Long term (current) use of inhaled steroids; F17.210 Nicotine dependence, cigarettes, uncomplicated
CPT/HCPCS: 62323; J1030; Q9967

== ENCOUNTER → 2017-02-23 | Outpatient (CLI) | payer OTHER ==
[~2017-02-23] MED LIST changes: -ISOVUE-M 300 61% 15ML VIAL (Q9967) As Ordered ONE; -LIDOCAINE 1% SDV INJ 30 ML VIAL As Ordered ONE; -diazePAM 5 MG TAB As Ordered ONE; -methylPREDNISolone SUSP 40 MG/ML (DEPO-medrol) VIAL (J1030) As Ordered ONE; -oxyCODONE 5MG TAB As Ordered ONE
--- NOTE | 2017-03-22 00:41 | ECWPNPC ---
PATIENT NAME: SHABBIR RICO : 1960 GENDER: MALE VISIT DATE: 02/23/2017 DISCHARGE DATE: 02/23/17 1405 VISIT LOCKED DATE TIME: PHYSICIAN: GRANT BLANCHARD RESOURCE: GRANT BLANCHARD REASON FOR APPOINTMENT 1. BACK HISTORY OF PRESENT ILLNESS HISTORY OF PRESENT ILLNESS: PAIN THE PATIENT DESCRIBES THE PAIN... FALL RISK SCREENING: SCREENING :NO FALLS IN THE PAST YEAR TODAY'S VISIT: NOTES: RATES PAIN TODAY 10. DESCRIBES PAIN ACHING, BURNING, TENDER, THROBBING SHOOTING AND IS PRESENT ACROSS THE LOW BACK AND BOTH HIPS AND INTO LEFT LEG ON A CONSTANT BASIS. IS S/P LESB COMPLETED ON 12/31/16. REPORTS 7-10 DAY SPOST PROCEDURE WITH MARKED REDUCTION OF ABOUT 50% IN NUMBNESS AND PAIN. X 6-8 DAYS. THIS ALSO DECREASED THE NUMBNESS IN HIS LEFT FOOT. . CURRENT MEDICATIONS TAKING HYDROCHLOROTHIAZIDE 12.5 MG TABLET TAKE ONE TABLET BY MOUTH ONCE DAILY ORAL TAKING GEMFIBROZIL 600 MG TABLET TAKE ONE TABLET BY MOUTH TWICE DAILY ORAL TAKING DIVALPROEX SODIUM 250 MG TABLET DELAYED RELEASE TAKE THREE TABLETS BY MOUTH AT BEDTIME ORAL TAKING ARNUITY ELLIPTA 200 MCG/ACT AEROSOL POWDER BREATH ACTIVATED INHALE ONE PUFF BY MOUTH ONCE DAILY INHALATION TAKING ANORO ELLIPTA 62.5-25 MCG/INH AEROSOL POWDER BREATH ACTIVATED INHALE ONE PUFF BY MOUTH ONCE DAILY INHALATION TAKING METFORMIN HCL ER 500 MG TABLET EXTENDED RELEASE 24 HOUR TAKE TWO TABLETS BY MOUTH EVERY MORNING AND ONE TABLET EVERY EVENING ORAL TAKING BUPROPION HCL 100 MG TABLET EXTENDED RELEASE 1 TAB ORALLY TWICE A DAY TAKING ALBUTEROL SULFATE 108 (90 BASE) MCG/ACT AEROSOL POWDER BREATH ACTIVATED 1 PUFF NEEDED INHALATION EVERY 4 HRS TAKING PERCOCET 5-325 MG TABLET 1 TABLET NEEDED ORALLY EVERY 8H PRN MDD1 TAKING REMERON 30 MG TABLET 1 TABLET AT BEDTIME ORALLY ONCE A DAY NOT-TAKING MIRTAZAPINE 30 MG TABLET TAKE ONE TABLET BY MOUTH AT BEDTIME ORAL NOT-TAKING PERCOCET 5-325 MG TABLET 1 TABLET NEEDED ORALLY EVERY 8-12 HOURS MDD=2 NOT-TAKING RISPERIDONE 0.5 MG TABLET TAKE ONE TABLET BY MOUTH AT BEDTIME ORAL NOT-TAKING HYDROXYZINE HCL 50 MG TABLET TAKE ONE TABLET BY MOUTH THREE TIMES DAILY NEEDED ORAL MEDICATION LIST REVIEWED AND RECONCILED WITH THE PATIENT PAST MEDICAL HISTORY LOW BACK PAIN COPD INSOMNIA CARDIAC ARRHYTHMIA HIGH CHOLESTEROL TYPE 2 DIABETES DEPRESSION / ANXIETY/ HX OF DRUG AND ALCOHOL USE KIDNEY STONES ALLERGIES N.K.D.A. SOCIAL HISTORY GENERAL: TOBACCO USE ARE YOU A:CURRENT SMOKER HOW MANY CIGARETTES A DAY DO YOU SMOKE?21-30 HOW OFTEN DO YOU SMOKE CIGARETTES?EVERY DAY PATIENT COUNSELED ON THE DANGERS OF TOBACCO USE AND URGED TO QUIT:12/31/2016 ARE YOU INTERESTED IN QUITTING?THINKING ABOUT QUITTING PREVIOUS QUIT ATTEMPTS?NO. COUNSELED THE PATIENT ON SMOKING CESSATION, EDUCATION [id number]/07/2017 PT IS NOT CURRENTLY INTERESTED IN QUITTING SMOKING BUT KNOWS HE IS SHORT OF BREATHE WITH MINIMAL EXERTION AND HE" IS GETTING OLDER, I KNOW I WILL HAVE TO QUIT". ALCOHOL SCREENING DID YOU HAVE A DRINK CONTAINING ALCOHOL IN THE PAST YEAR?NO POINTS0 INTERPRETATIONNEGATIVE RECREATIONAL DRUG USE DRUG USE? DENIES ANY ALCOHOL OR DRUG USE. CAFFEINE CAFFEINE USE?YES HOW OFTEN AND HOW MUCH? SODA EVERY DAY DIET: NO CONCENTRATED SWEETS.. EXERCISE: WALKS, ALOT OF PHYSICAL LABOR WITH WORK. [employer] [id number] [employer] LANGUAGE LANGUAGES SPOKEN:SCOTTISH LEARNING BARRIERS / SPECIAL NEEDS CHANGE FROM LAST VISIT?NO BARRIERS TO LEARNING?NO HEARING IMPAIRED?NO VISION IMPAIRED?YES :CORRECTIVE LENSES COGNITIVELY IMPAIRED?NO READINESS TO LEARN?YES LEARNING PREFERENCES?NO LEARNING CAPABILITIES PRESENT?YES EMOTIONAL BARRIERS?NO SPECIAL DEVICES?NO METALSMITH APPRENTICE NEEDED?NO PAIN CLINIC PFS, CLERGY, PUBLIC HEALTH REFERRALS PFS REFERRAL NEEDED?NO CLERGY REFERRAL NEEDED?NO PUBLIC HEALTH REFERRAL NEEDED?NO WAS THE PROVIDER NOTIFIED OF ANY PERTINENT INFO?NO HAS THE PATIENT BEEN EDUCATED REGARDING HIS/HER PLAN OF CARE?YES HAS THE PATIENT BEEN EDUCATED REGARDING PAIN, THE RISK FOR PAIN, THE IMPORTANCE OF EFFECTIVE PAIN MANAGEMENT, AND THE PAIN ASSESSMENT PROCESS?YES PATIENT: ____. 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 REVIEW OF SYSTEMS REVIEWED BY: PROVIDER: GRANT GIORDANO . CONSTITUTIONAL: ANY CHANGE IN YOUR MEDICAL CONDITION? NO . CHILLS NO . FEVER NO . INFECTION: DO YOU HAVE NEW INFECTIONS? NO . DO YOU HAVE HISTORY OF MRSA? NO . MUSCULOSKELETAL: ANY NEW PATTERNS OF PAIN OR NUMBNESS? NO . GASTROENTEROLOGY: ANY NEW CHANGE IN BOWEL CONTROL? NO . GENITOURINARY: ANY NEW CHANGE IN BLADDER CONTROL? NO . IS THERE A CHANCE YOU COULD BE ? NO . HEMATOLOGY/LYMPH: DO YOU TAKE ANY BLOOD THINNERS? (FOR EXAMPLE- COUMADIN, PLAVIX, AGGRENOX, PLATEL, PRADAXA, OR XARELTO) NO . WHEN WAS YOUR LAST DOSE? DATE: TIME: . NEUROLOGY: HAVE YOU FALLEN IN THE PAST 6 MONTHS? NO . ANY NEW EXTREMITY NUMBNESS OR WEAKNESS? NO . CARDIOLOGY: DO YOU HAVE A PACEMAKER OR DEFIBRILLATOR? NO . RESPIRATORY: HAVE YOU BEEN SICK IN THE PAST WEEK? NO . FEVER NO . FLU LIKE SYMPTOMS? NO . COUGH NO . INTEGUMENTARY: DO YOU HAVE ANY RASHES OR OPEN SORES? NO . ALLERGIC/IMMUNO: ARE YOU ALLERGIC TO SHELLFISH OR IV DYE? NO . ANY NEW ALLERGIES? NO . PSYCHIATRIC: DO YOU HAVE THOUGHTS OF HURTING YOURSELF OR SOMEONE ELSE? NO . ARE YOU ABUSED, NEGLECTED, OR IN AN UNSAFE ENVIRONMENT? NO . ENDOCRINOLOGY: ARE YOU DIABETIC? YES . OTHER: DO YOU NEED ANY PRESCRIPTIONS? YES . IF YES, PLEASE LIST: PERCOCET . ANY NEW PROBLEMS WITH YOUR MEDICATIONS? NO . WHEN DID YOU LAST EAT? ____ . WHEN DID YOU LAST DRINK? ____ . WHAT DID YOU LAST DRINK? ____ . NAME OF PERSON DRIVING YOU HOME? ____ . DO YOU HAVE ANY OTHER QUESTIONS OR CONCERNS YES, "COULD I GET SOME LIDOCAINE CREAM" . VITAL SIGNS WT 233.6 LBS, HT 71 IN, BMI 32.58 INDEX, BP 154/83 MM HG, HR 78 /MIN, RR 20 /MIN, TEMP 97.9 F, OXYGEN SAT % 96%, SAFE IN ENV? (Y/N) YES, REVIEWED BY: DONG (DONE AT 1318). EXAMINATION GENERAL EXAMINATION: PSYCHALERT , ORIENTED X 3 , APPROPRIATE MOOD AND AFFECT . LUNGS:CLEAR TO AUSCULTATION BILATERALLY. HEART:HEART RATE REGULAR. MUSCULOSKELETAL:POSTURE UPRIGHT, GAIT ANTALGIC WITH LEFT LEG LIMP. POINT TENDERNESS OVER LUMBAR SPINOUS PROCESSES AND LEFT LUMBOSACRAL AXIS. SLOW TO RISE TO STANDING POSITION. . NEUROLOGIC EXAM:DECREASED SENSATION LEFT LOWER EXTREMITY ONLY . DTR'S 2+ LEFT LOWER EXTREMITY, 1+ RIGHT LOWER EXTREMITY. . ASSESSMENTS LUMBAR POST-LAMINECTOMY SYNDROME - M96.1 (PRIMARY) LUMBAR RADICULOPATHY - M54.16 LUMBAGO WITH SCIATICA, LEFT SIDE - M54.42 OTHER CHRONIC PAIN - G89.29 TREATMENT LUMBAR POST-LAMINECTOMY SYNDROME REFILL PERCOCET TABLET, 5-325 MG, 1 TABLET NEEDED, ORALLY, EVERY 8H PRN MDD1, 30 DAY(S), 30, REFILLS 0 START LIDOCAINE CREAM, 4 %, 1 APPLICATION TO AFFECTED AREA NEEDED, EXTERNALLY, THREE TIMES A DAY TO THE LOW BACK, 30 DAY(S), 2 TUBE, REFILLS 3 CAUDAL/LUMBAR EPIDURAL NOTES: DO STRETCHES EVERY DAY. USE KISHAN ARZOLA TO LOW BACKDO NOT TAKE DIABETES MEDS MORNING OF PROCEDURE. CLINICAL NOTES: ISTOP REGISTRY REVIEWED AND DEMNOSTRATES COMPLLIANCE. (REF #[id number]) BRINGS IN MEDICATIONS WHICH IS APPROPRIATE FOR WHAT WAS DISPENSED. RECENT URINE TOXICOLOGY REVIEWED. NO UNAUTHORIZED MEDICATIONS. NO ILLICIT SUBSTANCES AND PRESCRIBED MEDICATIONS WERE PRESENT. , OPTION FOR EPIDURAL INJECTIONS WERE DISCUSSED WITH THE PATIENT. FDA CONCERNS AND WARNING WERE REVIEWED INCLUDING THE RISK OF BLEEDING, RISK OF INFECTION, RISK OF INCREASED PAIN OR NEURALGIA, AND RISK OF PARALYSIS. PATIENT'S QUESTIONS WERE ANSWERED AND HE/SHE WISHES TO MOVE FORWARD WITH EPIDURAL INJECTION. PREVENTIVE MEDICINE PAIN CLINIC TEACHING: MEDICATIONS PATIENT HAS USED LIDOCAINE CREAM PRIOR AND REFUSES ANY FURTHER EDUCATION.. PROCEDURE TEACHING PRE-PROCEDURE TEACHING DONE AND QUESTIONS ANSWERED. PATIENT VERBALIZES UNDERSTANDING.. PROCEDURE CODES FA211 ESTABILISHED PATIENT [facility] CHARGE DISPOSITION & COMMUNICATION FOLLOW UP AFTER INJECTION (REASON: CHECK AUTH FOR CAUDAL EPIDURAL) ELECTRONICALLY SIGNED BY CRISTAL GALEAS ON 03/21/2017 AT 09:24 PM EST DISCLAIMER : THIS IS A VISIT SUMMARY EXTRACTED FROM THE [employer] CHART. IT IS NOT A COPY OF THE [employer] PROGRESS NOTE. ANKUR
== END ==
LOC: M PAIN 13:00
PROVIDERS: ATTEND Nurse Practitioner Family
DX: M96.1 Postlaminectomy syndrome, not elsewhere classified (principal); M54.16 Radiculopathy, lumbar region; M54.42 Lumbago with sciatica, left side; G89.29 Other chronic pain; E11.9 Type 2 diabetes mellitus without complications; F17.210 Nicotine dependence, cigarettes, uncomplicated; Z79.84 Long term (current) use of oral hypoglycemic drugs; Z79.891 Long term (current) use of opiate analgesic; Z79.899 Other long term (current) drug therapy

== ENCOUNTER 2017-03-06 21:40 | Emergency (ER) | payer OTHER ==
[~2017-03-06] VITALS: Ht 180.3 cm; Wt 106.8 kg
[2017-03-06 21:40] VITALS: BP 161/95
[~2017-03-06 21:40] MED LIST changes: -BUPR150T3 PO; -ERYTOIN8 OD; -OXYC1TAB23 PO
[2017-03-06] MEDS ORDERED: BUPR150T3 PO (21:49)
[2017-03-06] MEDS ORDERED: OXYC1TAB23 PO (21:49)
[2017-03-06] MEDS ORDERED: TETRACAINE 0.5% OPHTH SOLN 4ML OD ONE (22:00)
[2017-03-06] MEDS ORDERED: FLUORESCEIN OPHTH 1 MG STRIP OS ONE (22:00)
[2017-03-06] MEDS ORDERED: ERYTOIN8 OD (22:21)
[2017-03-06] MEDS ORDERED: ERYTHROMYCIN OPHTH OINT OD ONE (22:30)
[2017-03-06] MEDS ORDERED: NORCO 5/325MG TABLET (BULK FOR ED) PO ONE (22:30)
== END 2017-03-06 22:34 | disposition home or self-care (01) ==
LOC: M ED 21:40
DX: S05.01XA Injury of conjunctiva and corneal abrasion without foreign body, right eye, initial encounter (principal); W25.XXXA Contact with sharp glass, initial encounter; Y92.019 Unspecified place in single-family (private) house as the place of occurrence of the external cause; Y93.89 Activity, other specified; Y99.8 Other external cause status; I10 Essential (primary) hypertension; E11.9 Type 2 diabetes mellitus without complications; F41.9 Anxiety disorder, unspecified; F17.210 Nicotine dependence, cigarettes, uncomplicated; N42.9 Disorder of prostate, unspecified; Z79.84 Long term (current) use of oral hypoglycemic drugs; Z79.891 Long term (current) use of opiate analgesic; Z79.899 Other long term (current) drug therapy; J30.81 Allergic rhinitis due to animal (cat) (dog) hair and dander; J30.1 Allergic rhinitis due to pollen; J30.89 Other allergic rhinitis

== ENCOUNTER → 2017-03-08 | Outpatient (CLI) | payer OTHER ==
[~2017-03-08] MED LIST changes: +BUPR150T3 PO; +ERYTOIN8 OD; +ISOVUE-M 300 61% 15ML VIAL (Q9967) As Ordered ONE; +LIDOCAINE 1% SDV INJ 30 ML VIAL As Ordered ONE; +OXYC1TAB23 PO; +diazePAM 5 MG TAB As Ordered ONE; +methylPREDNISolone SUSP 40 MG/ML (DEPO-medrol) VIAL (J1030) As Ordered ONE; +oxyCODONE 5MG TAB As Ordered ONE
--- NOTE | 2017-03-08 17:34 | REP ---
C-ARM VIEWS, SACRUM: CLINICAL HISTORY: Pain. Four C-ARM views sacrum performed during injection by Dr. Lira. Needle is seen at the S1 level. 38 second of fluoroscopy time utilized. Signed by Benson Asher MD 03/09/2017 01:22 P
--- NOTE | 2017-03-23 02:11 | ECWPNPC ---
PATIENT NAME: SHABBIR RICO : 1960 GENDER: MALE VISIT DATE: 03/08/2017 DISCHARGE DATE: 03/08/17 1207 VISIT LOCKED DATE TIME: PHYSICIAN: JOELLEN HANCOCK RESOURCE: JOELLEN HANCOCK REASON FOR APPOINTMENT 1. CAUDAL EPIDURAL HISTORY OF PRESENT ILLNESS HISTORY OF PRESENT ILLNESS: PAIN THE PATIENT DESCRIBES THE PAIN... FALL RISK SCREENING: SCREENING :NO FALLS IN THE PAST YEAR CURRENT MEDICATIONS TAKING HYDROCHLOROTHIAZIDE 12.5 MG TABLET TAKE ONE TABLET BY MOUTH ONCE DAILY ORAL , NOTES: 03-07-17899 TAKING GEMFIBROZIL 600 MG TABLET TAKE ONE TABLET BY MOUTH TWICE DAILY ORAL , NOTES: 03-07-172099 TAKING DIVALPROEX SODIUM 250 MG TABLET DELAYED RELEASE TAKE THREE TABLETS BY MOUTH AT BEDTIME ORAL , NOTES: 03-07-17979 TAKING ARNUITY ELLIPTA 200 MCG/ACT AEROSOL POWDER BREATH ACTIVATED INHALE ONE PUFF BY MOUTH ONCE DAILY INHALATION , NOTES: 03-08-17899 TAKING ANORO ELLIPTA 62.5-25 MCG/INH AEROSOL POWDER BREATH ACTIVATED INHALE ONE PUFF BY MOUTH ONCE DAILY INHALATION , NOTES: 03-07-172099 TAKING METFORMIN HCL ER 500 MG TABLET EXTENDED RELEASE 24 HOUR TAKE TWO TABLETS BY MOUTH EVERY MORNING AND ONE TABLET EVERY EVENING ORAL , NOTES: 03-07-17899 TAKING BUPROPION HCL 75 MG TABLET 2 TAB ORALLY TWICE A DAY, NOTES: 03-07-17899 TAKING ALBUTEROL SULFATE 108 (90 BASE) MCG/ACT AEROSOL POWDER BREATH ACTIVATED 1 PUFF NEEDED INHALATION EVERY 4 HRS, NOTES: NOT LATELY TAKING REMERON 30 MG TABLET 1 TABLET AT BEDTIME ORALLY ONCE A DAY, NOTES: 03-07-172099 TAKING PERCOCET 5-325 MG TABLET 1 TABLET NEEDED ORALLY EVERY 8H PRN MDD1, NOTES: 03-06-172099 TAKING LIDOCAINE 4 % CREAM 1 APPLICATION TO AFFECTED AREA NEEDED EXTERNALLY THREE TIMES A DAY TO THE LOW BACK, NOTES: NOT LATELY UNKNOWN MIRTAZAPINE 30 MG TABLET TAKE ONE TABLET BY MOUTH AT BEDTIME ORAL UNKNOWN PERCOCET 5-325 MG TABLET 1 TABLET NEEDED ORALLY EVERY 8-12 HOURS MDD=2 UNKNOWN RISPERIDONE 0.5 MG TABLET TAKE ONE TABLET BY MOUTH AT BEDTIME ORAL UNKNOWN HYDROXYZINE HCL 50 MG TABLET TAKE ONE TABLET BY MOUTH THREE TIMES DAILY NEEDED ORAL MEDICATION LIST REVIEWED AND RECONCILED WITH THE PATIENT PAST MEDICAL HISTORY LOW BACK PAIN COPD INSOMNIA CARDIAC ARRHYTHMIA HIGH CHOLESTEROL TYPE 2 DIABETES DEPRESSION / ANXIETY/ HX OF DRUG AND ALCOHOL USE KIDNEY STONES ALLERGIES N.K.D.A. SOCIAL HISTORY GENERAL: TOBACCO USE ARE YOU A:CURRENT SMOKER ARE YOU INTERESTED IN QUITTING?NOT READY TO QUIT COUNSELED THE PATIENT ON SMOKING EFFECTS, EDUCATION [id number]/13/2017 HOW MANY CIGARETTES A DAY DO YOU SMOKE?21-30 HOW SOON AFTER YOU WAKE UP DO YOU SMOKE YOUR FIRST CIGARETTE?WITHIN 5 MIN HOW OFTEN DO YOU SMOKE CIGARETTES?EVERY DAY PATIENT COUNSELED ON THE DANGERS OF TOBACCO USE AND URGED TO QUIT:03/08/2017 ALCOHOL SCREENING DID YOU HAVE A DRINK CONTAINING ALCOHOL IN THE PAST YEAR?NO POINTS0 INTERPRETATIONNEGATIVE RECREATIONAL DRUG USE DRUG USE? DENIES ANY ALCOHOL OR DRUG USE. CAFFEINE CAFFEINE USE?YES HOW OFTEN AND HOW MUCH? SODA EVERY DAY DIET: NO CONCENTRATED SWEETS.. EXERCISE: WALKS, ALOT OF PHYSICAL LABOR WITH WORK. [employer] [id number] TENRIISM LANGUAGE LANGUAGES SPOKEN:PERSIAN LEARNING BARRIERS / SPECIAL NEEDS CHANGE FROM LAST VISIT?NO BARRIERS TO LEARNING?NO HEARING IMPAIRED?NO VISION IMPAIRED?YES :CORRECTIVE LENSES COGNITIVELY IMPAIRED?NO READINESS TO LEARN?YES LEARNING PREFERENCES?NO LEARNING CAPABILITIES PRESENT?YES EMOTIONAL BARRIERS?NO SPECIAL DEVICES?NO VENTILATION WORKER NEEDED?NO PAIN CLINIC PFS, CLERGY, PUBLIC HEALTH REFERRALS PFS REFERRAL NEEDED?NO CLERGY REFERRAL NEEDED?NO PUBLIC HEALTH REFERRAL NEEDED?NO WAS THE PROVIDER NOTIFIED OF ANY PERTINENT INFO?NO HAS THE PATIENT BEEN EDUCATED REGARDING HIS/HER PLAN OF CARE?YES HAS THE PATIENT BEEN EDUCATED REGARDING PAIN, THE RISK FOR PAIN, THE IMPORTANCE OF EFFECTIVE PAIN MANAGEMENT, AND THE PAIN ASSESSMENT PROCESS?YES REVIEWED BY: 03/08 1058 AD. PATIENT: ____. 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 REVIEW OF SYSTEMS REVIEWED BY: PROVIDER: . CONSTITUTIONAL: ANY CHANGE IN YOUR MEDICAL CONDITION? NO . CHILLS NO . FEVER NO . INFECTION: DO YOU HAVE NEW INFECTIONS? NO . DO YOU HAVE HISTORY OF MRSA? NO . MUSCULOSKELETAL: ANY NEW PATTERNS OF PAIN OR NUMBNESS? NO . GASTROENTEROLOGY: ANY NEW CHANGE IN BOWEL CONTROL? NO . GENITOURINARY: ANY NEW CHANGE IN BLADDER CONTROL? NO . IS THERE A CHANCE YOU COULD BE ? NO . HEMATOLOGY/LYMPH: DO YOU TAKE ANY BLOOD THINNERS? (FOR EXAMPLE- COUMADIN, PLAVIX, AGGRENOX, PLATEL, PRADAXA, OR XARELTO) NO . WHEN WAS YOUR LAST DOSE? DATE: TIME: . NEUROLOGY: HAVE YOU FALLEN IN THE PAST 6 MONTHS? NO . ANY NEW EXTREMITY NUMBNESS OR WEAKNESS? NO . CARDIOLOGY: DO YOU HAVE A PACEMAKER OR DEFIBRILLATOR? NO . RESPIRATORY: HAVE YOU BEEN SICK IN THE PAST WEEK? NO . FEVER NO . FLU LIKE SYMPTOMS? NO . COUGH NO . INTEGUMENTARY: DO YOU HAVE ANY RASHES OR OPEN SORES? NO . ALLERGIC/IMMUNO: ARE YOU ALLERGIC TO SHELLFISH OR IV DYE? NO . ANY NEW ALLERGIES? NO . PSYCHIATRIC: DO YOU HAVE THOUGHTS OF HURTING YOURSELF OR SOMEONE ELSE? NO . ARE YOU ABUSED, NEGLECTED, OR IN AN UNSAFE ENVIRONMENT? NO . ENDOCRINOLOGY: ARE YOU DIABETIC? YES . OTHER: DO YOU NEED ANY PRESCRIPTIONS? NO . IF YES, PLEASE LIST: ____ . ANY NEW PROBLEMS WITH YOUR MEDICATIONS? NO . WHEN DID YOU LAST EAT? ____ . WHEN DID YOU LAST DRINK? 8 . WHAT DID YOU LAST DRINK? ____WATER . NAME OF PERSON DRIVING YOU HOME? [facility] . DO YOU HAVE ANY OTHER QUESTIONS OR CONCERNS NO . VITAL SIGNS WT 235.0 LBS, HT 71 IN, BMI 32.77 INDEX, BP 160/90 MM HG, HR 89 /MIN, RR 18 /MIN, TEMP 97.5 F, OXYGEN SAT % 96%, NA INITIALS TL 1024, REVIEWED BY: NAOMI BP, RN Rosemarie AWARE- TL. ASSESSMENTS INTERVERTEBRAL DISC DISORDER WITH RADICULOPATHY OF LUMBOSACRAL REGION - M51.17 (PRIMARY) PROCEDURES PRE PROCEDURE DIAGNOSIS LUMBOSACRAL DISC DISORDER WITH RADICULOPATHY POST PROCEDURE DIAGNOSIS LUMBOSACRAL DISC DISORDER WITH RADICULOPATHY PROCEDURE LUMBAR EPIDURAL STEROID INJECTION UNDER FLUOROSCOPIC GUIDANCE SURGEON DR. JOELLEN HANCOCK NIGHT SHIFT SUPERVISOR NONE ANESTHESIA LOCAL PRE PROCEDURE NOTE THE PATIENT HAS A HISTORY OF CHRONIC LOW BACK PAIN. I EVALUATE THE PATIENT AND REVIEWED THE CHART. I WENT OVER THE RISKS, ALTERNATIVES, AND BENEFITS ASSOCIATED WITH THIS PROCEDURE. THE PATIENT WOULD LIKE TO PROCEED AND GIVE CONSENT TO PERFORMED THE PROCEDURE. THE PATIENT DENIES UNEXPLAINABLE WEIGHT LOSS, FEVER, CHILLS, OR NEW CHANGES IN URINARY OR BOWEL CONTROL. DESCRIPTION OF PROCEDURE THE PATIENT WAS BROUGHT TO THE PROCEDURE ROOM AND PLACED IN THE PRONE POSITION. THE LUMBOSACRAL AREA WAS CLEANED WITH BETADINE SOLUTION AND DRAPED ASEPTICALLY. THE PROCEDURE WAS DONE UNDER STERILE CONDITIONS. I CHECKED LATERALITY AND THE LEVEL WHERE THE PROCEDURE WAS GOING TO BE PERFORMED WITH THE PATIENT AND THE SUPPORTING STAFF AT THE MOMENT OF THE TIME OUT IN THE PROCEDURE ROOM. UNDER FLUOROSCOPIC GUIDANCE, THE TARGET POINT WAS SELECTED AT THE INTERLAMINAR LEVEL OF L5-S1. LIDOCAINE WAS USED TO NUMB THE SKIN AND THE SUBCUTANEOUS TISSUE BELOW IT. EPIDURAL TUOHY NEEDLE, 17-GAUGE, WAS ADVANCED UNDER FLUOROSCOPIC GUIDANCE AND FOLLOWING PATIENT FEEDBACK UNTIL THE EPIDURAL SPACE WAS REACHED, 7 CM DEEP INTO THE SKIN BY THE LOSS OF RESISTANCE TECHNIQUE. ISOVUE M DYE 30%, 0.25 ML, WAS INJECTED SHOWING ADEQUATE SPREAD OF THE DYE. THEN, A SOLUTION OF 3 ML OF NORMAL SALINE WITH DEPO-MEDROL 60 MG WAS INJECTED SLOWLY FOLLOWING PATIENT FEEDBACK. THERE WAS NO EVIDENCE OF BLOOD, PARESTHESIA OR CEREBROSPINAL FLUID DURING THE PROCEDURE. THE PATIENT WAS SENT TO THE RECOVERY ROOM. THE PATIENT WAS MOVING THE EXTREMITIES AND DOING WELL. THERE WAS NO COMPLICATION DURING THE PROCEDURE. FLUOROSCOPY TIME WAS 38 SECONDS. POST PROCEDURE NOTE THE PATIENT WILL BE SEEN IN A FOLLOW UP IN THE NEXT FEW WEEKS. INSTRUCTIONS WERE GIVEN, QUESTIONS WERE ANSWERED, AND THE PATIENT EXPRESSED UNDERSTANDING AND AGREES WITH THE PLAN. I, SHARON LOPES, DOCUMENTED THE ABOVE INFORMATION ACTING A SCRIBE FOR DR. HANCOCK. I HAVE REVIEWED THE ABOVE DOCUMENT, WRITTEN BY SHARON LOPES SCRIBYessi AND I VERIFY THAT IT IS ACCURATE DIAGNOSTIC IMAGING [facility] FLUORO GUIDE SPINE INJECTION (PAIN)[id number] PROCEDURE CODES 66504 LUMBAR/SACRAL W/ IMAGING 6045F RADXPS IN END [id number] PXD DISPOSITION & COMMUNICATION FOLLOW UP 2 WEEKS ELECTRONICALLY SIGNED BY JOELLEN HANCOCK MD ON 03/22/2017 AT 11:04 AM EST DISCLAIMER : THIS IS A VISIT SUMMARY EXTRACTED FROM THE [facility] CHART. IT IS NOT A COPY OF THE [facility] PROGRESS NOTE. MTDD
== END ==
LOC: M PAIN 10:15
PROVIDERS: ATTEND Anesthesiology
DX: G89.29 Other chronic pain (principal); M51.17 Intervertebral disc disorders with radiculopathy, lumbosacral region; F17.210 Nicotine dependence, cigarettes, uncomplicated; J44.9 Chronic obstructive pulmonary disease, unspecified; G47.00 Insomnia, unspecified; E78.00 Pure hypercholesterolemia, unspecified; E11.9 Type 2 diabetes mellitus without complications; F32.9 Major depressive disorder, single episode, unspecified; F41.9 Anxiety disorder, unspecified; Z87.442 Personal history of urinary calculi; Z79.891 Long term (current) use of opiate analgesic; Z79.899 Other long term (current) drug therapy; Z79.84 Long term (current) use of oral hypoglycemic drugs
CPT/HCPCS: 62323; J1030; Q9967

== ENCOUNTER → 2017-04-27 | Outpatient (CLI) | payer OTHER | LOC: M PAIN 13:45 | DX: M96.1 Postlaminectomy syndrome, not elsewhere classified (principal); M51.17 Intervertebral disc disorders with radiculopathy, lumbosacral region; E11.9 Type 2 diabetes mellitus without complications; J44.9 Chronic obstructive pulmonary disease, unspecified; G47.00 Insomnia, unspecified; E78.00 Pure hypercholesterolemia, unspecified; F32.9 Major depressive disorder, single episode, unspecified; F17.210 Nicotine dependence, cigarettes, uncomplicated; Z79.84 Long term (current) use of oral hypoglycemic drugs; Z79.899 Other long term (current) drug therapy | CPT/HCPCS: G0463 ==

== ENCOUNTER → 2017-04-28 | Outpatient (CLI) | payer OTHER ==
[2017-04-28 14:37] LABS: BASO # 0.1 10^3/uL (0.0-0.2); BASO % 1.3 % (0.0-1.0); EOS # 0.2 10^3/uL (0.0-0.50); EOS % 2.3 % (0.0-3.0); HEMATOCRIT 44.4 % (42.0-52.0); IMMATURE GRANULOCYTE # 0.1 10^3/uL (0-0); IMMATURE GRANULOCYTE % 1.2 % (0-0); LYMPH # 2.4 10^3/uL (1.5-4.5); LYMPH % 25.6 % (24.0-44.0); MEAN CORPUSCULAR HEMOGLOBIN 30.4 pg (27.0-33.0); MEAN CORPUSCULAR HGB CONC 33.8 g/dl (32.0-36.5); MEAN CORPUSCULAR VOLUME 90.1 fl (80.0-96.0); MONO # 0.6 10^3/uL (0.0-0.8); MONO % 6.5 % (0.0-5.0); NEUTROPHILS % 63.1 % (36.0-66.0); PLATELET COUNT, AUTOMATED 301 10^3/uL (150-450); RED BLOOD COUNT 4.93 10^6/uL (4.30-6.10); RED CELL DISTRIBUTION WIDTH 12.1 % (11.5-14.5); WHITE BLOOD COUNT 9.5 10^3/uL (4.0-10.0)
[2017-04-28 15:03] LABS: TOTAL 25(OH) VITAMIN D 35.8 NG/ML (30.0-100.0)
[2017-04-28 15:08] LABS: ALBUMIN 3.6 GM/DL (3.2-5.2); ALBUMIN/GLOBULIN RATIO 1.03 (1.00-1.93); ALKALINE PHOSPHATASE 80 U/L (45-117); ALT/SGPT 29 U/L (12-78); ANION GAP 8 MEQ/L (8-16); AST/SGOT 21 U/L (7-37); BILIRUBIN,TOTAL 0.3 MG/DL (0.2-1.0); BLOOD UREA NITROGEN 17 MG/DL (7-18); CALCIUM LEVEL 8.6 MG/DL (8.5-10.1); CARBON DIOXIDE LEVEL 25 MEQ/L (21-32); CHLORIDE LEVEL 107 MEQ/L (98-107); CHOLESTEROL LEVEL 159 MG/DL (<200); CHOLESTEROL RISK RATIO 4.676 (<5); CREATININE FOR GFR 0.66 MG/DL (0.70-1.30); FREE T4 1.02 NG/DL (0.76-1.46); GLOMERULAR FILTRATION RATE > 60.0 (>56); GLUCOSE, FASTING 131 MG/DL (70-105); HDL CHOLESTEROL 34 MG/DL (>40); LDL CHOLESTEROL 55.6 MG/DL (<100); NON-HDL-C 125 MG/DL; POTASSIUM SERUM 4.3 MEQ/L (3.5-5.1); SODIUM LEVEL 140 MEQ/L (136-145); TOTAL PROTEIN 7.1 GM/DL (6.4-8.2); TRIGLYCERIDES LEVEL 347 MG/DL (<150)
[2017-04-28 15:11] LABS: ESTIMATED AVERAGE GLUCOSE 111 MG/DL (60-110); HEMOGLOBIN A1c 5.5 %
== END ==
LOC: M LAB 13:46
DX: E78.00 Pure hypercholesterolemia, unspecified (principal); E78.1 Pure hyperglyceridemia; E11.9 Type 2 diabetes mellitus without complications; E55.9 Vitamin D deficiency, unspecified; Z79.899 Other long term (current) drug therapy
CPT/HCPCS: 84443

== ENCOUNTER → 2017-04-28 | Outpatient (CLI) | payer OTHER ==
[2017-04-28 15:00] LABS: VALPROIC ACID (DEPAKOTE) 19.3 UG/ML (50.0-100.0)
== END ==
LOC: M LAB 13:53
DX: F32.89 Other specified depressive episodes (principal)
CPT/HCPCS: 80164

== ENCOUNTER → 2017-06-01 | Outpatient (REF) | payer OTHER ==
[2017-06-01 14:20] LABS: APPEARANCE, URINE CLEAR (CLEAR); BACTERIA, URINE AUTO NEGATIVE (NEGATIVE); BILIRUBIN, URINE AUTO NEGATIVE (NEGATIVE); BLOOD, URINE BLOOD NEGATIVE (NEGATIVE); COLOR, URINE YELLOW (YELLOW); GLUCOSE, URINE (UA) AUTO NEGATIVE (NEGATIVE); KETONE, URINE AUTO TRACE mg/dL (NEGATIVE); LEUKOCYTE ESTERASE, URINE AUTO NEGATIVE (NEGATIVE); NITRITE, URINE AUTO NEGATIVE (NEGATIVE); PROTEIN, URINE AUTO NEGATIVE (NEGATIVE); RBC, URINE AUTO 1 /HPF (0-3); SPECIFIC GRAVITY URINE AUTO 1.021 (1.002-1.035); SQUAMOUS EPITHELIAL CELL UR AU 0 /HPF (0-6); UROBILINOGEN, URINE AUTO 0.2 mg/dL (0.0-2.0); WBC, URINE AUTO 2 /HPF (0-3)
== END ==
LOC: M SMT 13:15
DX: R31.0 Gross hematuria (principal)
CPT/HCPCS: 81001

== ENCOUNTER → 2017-06-02 | Outpatient (CLI) | payer OTHER ==
[~2017-06-02] MED LIST changes: -ALEV220C2 PO; -ANOR1AER IN; -ARNU1INH3 IN; -BUPR150T3 PO; -COMBAER6 INH; -DIVA250T PO; -ERYTOIN8 OD; -GEMF600T PO; -HYDR12.55 PO; -HYDR50TA70 PO; -IPRASOL4 IN; +ISOVUE-M 300 61% 15ML VIAL (Q9967) As Ordered; -ISOVUE-M 300 61% 15ML VIAL (Q9967) As Ordered ONE; +LIDOCAINE 1% SDV INJ 30 ML VIAL As Ordered; -LIDOCAINE 1% SDV INJ 30 ML VIAL As Ordered ONE; -METF500T13 PO; -MIRT30TA3 PO; -OXYC1TAB23 PO; -RISP0.5T3 PO; +diazePAM 5 MG TAB As Ordered; -diazePAM 5 MG TAB As Ordered ONE; +methylPREDNISolone SUSP 40 MG/ML (DEPO-medrol) VIAL (J1030) As Ordered; -methylPREDNISolone SUSP 40 MG/ML (DEPO-medrol) VIAL (J1030) As Ordered ONE; +oxyCODONE 5MG TAB As Ordered; -oxyCODONE 5MG TAB As Ordered ONE
== END ==
LOC: M PAIN 10:15
DX: G89.29 Other chronic pain (principal); M51.17 Intervertebral disc disorders with radiculopathy, lumbosacral region; J44.9 Chronic obstructive pulmonary disease, unspecified; G47.00 Insomnia, unspecified; E78.00 Pure hypercholesterolemia, unspecified; E11.9 Type 2 diabetes mellitus without complications; F32.9 Major depressive disorder, single episode, unspecified; F41.9 Anxiety disorder, unspecified; F10.21 Alcohol dependence, in remission; F17.210 Nicotine dependence, cigarettes, uncomplicated; Z79.84 Long term (current) use of oral hypoglycemic drugs; Z79.899 Other long term (current) drug therapy; Z86.59 Personal history of other mental and behavioral disorders
CPT/HCPCS: J1030

== ENCOUNTER → 2017-06-16 | Outpatient (CLI) | payer OTHER | LOC: M PAIN 13:15 | DX: M96.1 Postlaminectomy syndrome, not elsewhere classified (principal); M51.17 Intervertebral disc disorders with radiculopathy, lumbosacral region; J44.9 Chronic obstructive pulmonary disease, unspecified; E11.9 Type 2 diabetes mellitus without complications; F17.210 Nicotine dependence, cigarettes, uncomplicated; Z79.84 Long term (current) use of oral hypoglycemic drugs; Z79.891 Long term (current) use of opiate analgesic; Z79.899 Other long term (current) drug therapy | CPT/HCPCS: G0463 ==

== ENCOUNTER → 2017-08-02 | Outpatient (CLI) | payer OTHER | LOC: M PAIN 13:45 | DX: M79.1 Myalgia (principal); M96.1 Postlaminectomy syndrome, not elsewhere classified; M51.17 Intervertebral disc disorders with radiculopathy, lumbosacral region; J44.9 Chronic obstructive pulmonary disease, unspecified; E11.9 Type 2 diabetes mellitus without complications; E78.00 Pure hypercholesterolemia, unspecified; Z79.891 Long term (current) use of opiate analgesic; Z79.84 Long term (current) use of oral hypoglycemic drugs; Z79.899 Other long term (current) drug therapy | CPT/HCPCS: G0463 ==

== ENCOUNTER → 2017-08-11 | Outpatient (CLI) | payer OTHER ==
[2017-08-11 11:57] LABS: BASO # 0.1 10^3/uL (0.0-0.2); BASO % 1.1 % (0.0-1.0); EOS # 0.2 10^3/uL (0.0-0.50); HEMATOCRIT 42.3 % (42.0-52.0); HEMOGLOBIN 14.4 g/dl (13.5-17.5); IMMATURE GRANULOCYTE # 0.1 10^3/uL (0-0); IMMATURE GRANULOCYTE % 0.7 % (0-3.0); LYMPH # 2.3 10^3/uL (1.5-4.5); LYMPH % 25.2 % (24.0-44.0); MEAN CORPUSCULAR HEMOGLOBIN 31.3 pg (27.0-33.0); MONO # 0.6 10^3/uL (0.0-0.8); MONO % 6.5 % (0.0-5.0); NEUTROPHILS # 5.8 10^3/uL (1.8-7.7); NEUTROPHILS % 64.5 % (36.0-66.0); PLATELET COUNT, AUTOMATED 290 10^3/uL (150-450); WHITE BLOOD COUNT 8.9 10^3/uL (4.0-10.0)
[2017-08-11 13:10] LABS: MALB URINE SIEMENS 10.9 MG/L
[2017-08-11 13:57] LABS: ALBUMIN/GLOBULIN RATIO 1.29 (1.00-1.93); ALKALINE PHOSPHATASE 71 U/L (45-117); ALT/SGPT 28 U/L (12-78); ANION GAP 7 MEQ/L (8-16); AST/SGOT 12 U/L (7-37); BILIRUBIN,TOTAL 0.4 MG/DL (0.2-1.0); BLOOD UREA NITROGEN 22 MG/DL (7-18); CALCIUM LEVEL 8.9 MG/DL (8.5-10.1); CARBON DIOXIDE LEVEL 27 MEQ/L (21-32); CHLORIDE LEVEL 107 MEQ/L (98-107); CHOLESTEROL LEVEL 137 MG/DL (<200); CHOLESTEROL RISK RATIO 3.605 (<5); CREATININE FOR GFR 0.85 MG/DL (0.70-1.30); GLOMERULAR FILTRATION RATE > 60.0 (>56); GLUCOSE, FASTING 110 MG/DL (70-100); HDL CHOLESTEROL 38 MG/DL (>40); LDL CHOLESTEROL 64.8 MG/DL (<100); NON-HDL-C 99 MG/DL; POTASSIUM SERUM 4.3 MEQ/L (3.5-5.1); SODIUM LEVEL 141 MEQ/L (136-145); THYROID STIMULATING HORMONE 0.765 uIU/ML (0.358-3.740); TOTAL PROTEIN 7.1 GM/DL (6.4-8.2); TRIGLYCERIDES LEVEL 171 MG/DL (<150)
[2017-08-11 15:16] LABS: ESTIMATED AVERAGE GLUCOSE 108 MG/DL (60-110); HEMOGLOBIN A1c 5.4 %
[2017-08-13 09:51] LABS: TOTAL 25(OH) VITAMIN D 21.2 NG/ML (30.0-100.0)
== END ==
LOC: M LAB 11:08
DX: Z51.81 Encounter for therapeutic drug level monitoring (principal); Z79.899 Other long term (current) drug therapy; R39.14 Feeling of incomplete bladder emptying; R31.9 Hematuria, unspecified; E11.40 Type 2 diabetes mellitus with diabetic neuropathy, unspecified; E55.9 Vitamin D deficiency, unspecified; E78.2 Mixed hyperlipidemia
CPT/HCPCS: 84443

== ENCOUNTER → 2017-08-11 | Outpatient (CLI) | payer OTHER ==
[2017-08-11 12:21] LABS: CREATININE FOR GFR 0.86 MG/DL (0.70-1.30); GLOMERULAR FILTRATION RATE > 60.0 (>56)
[2017-08-11 12:21] LABS: BLOOD UREA NITROGEN 22 MG/DL (7-18)
== END ==
LOC: M LAB 11:05
DX: E11.9 Type 2 diabetes mellitus without complications (principal); R03.0 Elevated blood-pressure reading, without diagnosis of hypertension
CPT/HCPCS: 36415

== ENCOUNTER → 2017-10-29 | Outpatient (CLI) | payer OTHER ==
[2017-10-29 14:51] LABS: RUBELLA IgG QUALITATIVE IMMUNE (IMMUNE)
[2017-10-30 09:13] LABS: RUBEOLA IgG ANTIBODY >300.0 AU/mL (Immune >29.9)
== END ==
LOC: M WUC 08:56
DX: Z02.1 Encounter for pre-employment examination (principal)
CPT/HCPCS: 86762

== ENCOUNTER → 2018-03-31 | Outpatient (CLI) | payer OTHER ==
[2018-03-31 10:40] LABS: HEMATOCRIT 45.6 % (42.0-52.0); HEMOGLOBIN 15.3 g/dl (13.5-17.5); MEAN CORPUSCULAR HEMOGLOBIN 30.3 pg (27.0-33.0); MEAN CORPUSCULAR HGB CONC 33.6 g/dl (32.0-36.5); MEAN CORPUSCULAR VOLUME 90.3 fl (80.0-96.0); PLATELET COUNT, AUTOMATED 292 10^3/uL (150-450); RED BLOOD COUNT 5.05 10^6/uL (4.30-6.10); RED CELL DISTRIBUTION WIDTH 12.3 % (11.5-14.5); WHITE BLOOD COUNT 9.8 10^3/uL (4.0-10.0)
[2018-03-31 10:57] LABS: ESTIMATED AVERAGE GLUCOSE 117 MG/DL (60-110); HEMOGLOBIN A1c 5.7 %
[2018-03-31 11:12] LABS: ALBUMIN 4.1 GM/DL (3.2-5.2); ALBUMIN/GLOBULIN RATIO 1.32 (1.00-1.93); ALKALINE PHOSPHATASE 71 U/L (45-117); ALT/SGPT 24 U/L (12-78); ANION GAP 9 MEQ/L (8-16); AST/SGOT 14 U/L (7-37); BILIRUBIN,TOTAL 0.4 MG/DL (0.2-1.0); BLOOD UREA NITROGEN 20 MG/DL (7-18); CARBON DIOXIDE LEVEL 25 MEQ/L (21-32); CHLORIDE LEVEL 103 MEQ/L (98-107); CHOLESTEROL LEVEL 128 MG/DL (<200); CREATININE FOR GFR 0.76 MG/DL (0.70-1.30); GLOMERULAR FILTRATION RATE > 60.0 (>56); GLUCOSE, FASTING 90 MG/DL (70-100); HDL CHOLESTEROL 40 MG/DL (>40); LDL CHOLESTEROL 68 MG/DL (<100); NON-HDL-C 88 MG/DL; POTASSIUM SERUM 4.6 MEQ/L (3.5-5.1); PROSTATIC SPECIFIC AG MONITOR 2.4 NG/ML (< 4.0); SODIUM LEVEL 137 MEQ/L (136-145); TOTAL PROTEIN 7.2 GM/DL (6.4-8.2); TRIGLYCERIDES LEVEL 99 MG/DL (<150)
== END ==
LOC: M LAB 09:12
DX: R53.83 Other fatigue (principal); I10 Essential (primary) hypertension
CPT/HCPCS: 71046

== ENCOUNTER → 2018-06-08 | Outpatient (REF) | payer OTHER, SELFPAY ==
[~2018-06-08] MED LIST changes: +ALEV220C2 PO; +ANOR1AER IN; +ARNU1INH3 IN; +BUPR150T3 PO; +COMBAER6 INH; +DIVA250T67 PO; +ERYTOIN8 OD; +GEMF600T5 PO; +HYDR12.55 PO; +HYDR50TA70 PO; +IPRA0.00 IN; -ISOVUE-M 300 61% 15ML VIAL (Q9967) As Ordered; -LIDOCAINE 1% SDV INJ 30 ML VIAL As Ordered; +METF500T13 PO; +MIRT30TA3 PO; +OXYC1TAB23 PO; +RISP0.5T3 PO; -diazePAM 5 MG TAB As Ordered; -methylPREDNISolone SUSP 40 MG/ML (DEPO-medrol) VIAL (J1030) As Ordered; -oxyCODONE 5MG TAB As Ordered
[2018-06-08 14:09] LABS: INFLUENZA A AMPLIFICATION POSITIVE (NEGATIVE); INFLUENZA B AMPLIFICATION NEGATIVE (NEGATIVE)
== END ==
LOC: M LAB REF 13:29
PROVIDERS: ATTEND Physician Assistant
DX: J11.1 Influenza due to unidentified influenza virus with other respiratory manifestations (principal)

== ENCOUNTER → 2018-09-09 | Outpatient (CLI) | payer OTHER ==
[2018-09-09 11:31] LABS: HEMOGLOBIN A1c 5.7 %
[2018-09-09 11:55] LABS: THYROID STIMULATING HORMONE 0.602 uIU/ML (0.358-3.740); TOTAL T3 119.6 NG/DL (60.0-181.0)
== END ==
LOC: M LAB 10:11
PROVIDERS: ATTEND Family Medicine
DX: I10 Essential (primary) hypertension (principal); R53.83 Other fatigue; E11.9 Type 2 diabetes mellitus without complications

== ENCOUNTER → 2019-01-23 | Outpatient (CLI) | payer OTHER ==
--- NOTE | 2019-01-23 14:55 | REP ---
REASON: Tobacco abuse. PRIORS: None. As per the protocol only lung window images were send to the read station for interpretation. In the left upper lobe there is a 6 mm sized nodule with an eccentric calcification within it. In the right upper lobe there is a 5 mm sized nodule with an eccentric calcification within it. Tiny biapical pulmonary parenchymal cystic airspaces are noted. There is a wedge shaped density in the right middle lobe. There are no pleural or pericardial effusions. Grossly the mediastinum and pulmonary leonie are within normal limits. Grossly the imaged upper abdomen and imaged osseous structures are within normal limits. IMPRESSION: 1. Bilateral lung nodules as described above. They potentially represents calcifying granulomas, however, since there are no priors for comparison [address] is recommended since the larger of the two nodules represents a category 4A lesion according to the revised Fleischner's Society criteria. 2. Evidence of early emphysema changes as described above. Electronically Signed by Ronnell Basilio DO 01/24/2019 09:40 A
== END ==
LOC: M RAD 10:17
PROVIDERS: ATTEND Internal Medicine Pulmonary Disease
DX: F17.218 Nicotine dependence, cigarettes, with other nicotine-induced disorders (principal); R91.8 Other nonspecific abnormal finding of lung field

== ENCOUNTER → 2019-06-19 | Outpatient (CLI) | payer OTHER, SELFPAY ==
--- NOTE | 2019-06-19 18:12 | REP ---
CT study of the chest without contrast: History: Other nonspecific lung field finding. Comparison chest CT study January 23, 2019. Findings: There is a calcified 5 mm nodular opacity in the posterior segment of the right upper lobe seen on page 44 of 118 in series 201 of today's study. This is unchanged from the January 23, 2019 prior study. In addition, there is a noncalcified pulmonary nodule in the left lung apex in the left upper lobe. This is 6 mm in diameter and projects on page 25 of 118 in series 201. This is also unchanged from the comparison study of January 23, 2019. There are bilateral upper lobe emphysematous changes. There is minimal linear fibrosis in the lingular segment of the left upper lobe at the left lung base. No endobronchial lesion is seen. No other pulmonary nodule is appreciated. No infiltrate is noted. No hilar or mediastinal mass is seen. No pleural or pericardial effusion is noted. There is mild diffuse fatty infiltration of the liver. There are small bilateral low-density adrenal adenomas. The benign right adrenal adenoma measures 2.6 cm in greatest diameter and the left adrenal adenoma measures 3.1 cm in greatest diameter. These both have negative mean Hounsfield unit densities on today's noncontrast CT study. Impression: Stable bilateral pulmonary nodules, the largest of which is a noncalcified nodule in the left apex, 6 mm in greatest diameter. Follow-up CT study suggested in 6-9 months. The right upper lobe nodule is felt to be a calcified granuloma. Electronically Signed by Clemente Barrow MD 06/19/2019 06:22 P
== END ==
LOC: M RAD 16:33
PROVIDERS: ATTEND Internal Medicine Pulmonary Disease
DX: R91.8 Other nonspecific abnormal finding of lung field (principal)

== ENCOUNTER → 2019-08-31 | Outpatient (CLI) | payer OTHER, SELFPAY ==
--- NOTE | 2019-09-01 06:51 | REP ---
Clinical: Sciatica. Technique: AP, lateral, bilateral oblique, and coned-down views of the lumbosacral spine. Findings: Alignment and lordosis maintained. No acute fracture / compression injury or subluxation. No obvious spondylolysis or spondylolisthesis. Advanced degenerative disc osteophyte complex at L5-S1 includes endplate sclerosis, disc space narrowing, osteophytosis, and hypertrophic facet changes. Moderate degenerative changes at L4-5 include early spurring and hypertrophic facet changes. Impression: Focal degenerative spondylosis primarily involving L5-S1. Electronically Signed by Tanvir Floyd MD 09/01/2019 06:43 A
== END ==
LOC: M RAD 15:17
PROVIDERS: ATTEND Family Medicine
DX: M47.817 Spondylosis without myelopathy or radiculopathy, lumbosacral region (principal)

== ENCOUNTER → 2019-10-10 | Outpatient (CLI) | payer OTHER ==
[~2019-10-10] MED LIST changes: -BUPR150T3 PO; +BUPR150T4 PO; +CYCL-707 PO; +FLOM0.4C39 PO; +RISP-7 PO; -RISP0.5T3 PO
[2019-10-10 09:30] LABS: HEMATOCRIT 44.5 % (42.0-52.0); HEMOGLOBIN 14.4 g/dl (13.5-17.5); MEAN CORPUSCULAR HEMOGLOBIN 29.1 pg (27.0-33.0); MEAN CORPUSCULAR HGB CONC 32.4 g/dl (32.0-36.5); MEAN CORPUSCULAR VOLUME 89.9 fl (80.0-96.0); PLATELET COUNT, AUTOMATED 248 10^3/uL (150-450); RED BLOOD COUNT 4.95 10^6/uL (4.30-6.10); WHITE BLOOD COUNT 7.7 10^3/uL (4.0-10.0)
[2019-10-10 09:59] LABS: HEMOGLOBIN A1c 5.8 %
[2019-10-10 10:09] LABS: ALBUMIN 3.9 GM/DL (3.2-5.2); ALT/SGPT 50 U/L (12-78); BILIRUBIN,TOTAL 0.5 MG/DL (0.2-1.0); BLOOD UREA NITROGEN 19 MG/DL (7-18); CALCIUM LEVEL 9.1 MG/DL (8.5-10.1); CARBON DIOXIDE LEVEL 25 MEQ/L (21-32); CHLORIDE LEVEL 104 MEQ/L (98-107); CHOLESTEROL LEVEL 148 MG/DL (<200); CHOLESTEROL RISK RATIO 4.774 (<5); CREATININE FOR GFR 0.78 MG/DL (0.70-1.30); GLOMERULAR FILTRATION RATE > 60.0 (>56); GLUCOSE, FASTING 96 MG/DL (70-100); HDL CHOLESTEROL 31 MG/DL (>40); LDL CHOLESTEROL 82 MG/DL (<100); NON-HDL-C 117 MG/DL; POTASSIUM SERUM 4.4 MEQ/L (3.5-5.1); PROSTATIC SPECIFIC AG MONITOR 2.69 NG/ML (< 4.00); SODIUM LEVEL 138 MEQ/L (136-145); TESTOSTERONE 312 NG/DL (241-827); TOTAL PROTEIN 7.5 GM/DL (6.4-8.2); TRIGLYCERIDES LEVEL 176 MG/DL (<150)
[2019-10-10 10:32] LABS: TOTAL 25(OH) VITAMIN D 39.6 NG/ML (30.0-100.0)
--- NOTE | 2019-10-10 11:02 | REP ---
CHEST X-RAY: TWO VIEWS. HISTORY: Hypertension. Fatigue. COMPARISON CHEST X-RAY: March 31, 2018 FINDINGS: The lungs are slightly hyperinflated but free of infiltrate. Pleural angles are sharp. Heart size is normal. There are degenerative changes in the thoracic spine. Pulmonary vasculature is not increased. IMPRESSION: Mild hyperinflation. Otherwise no acute disease. Electronically Signed by Clemente Barrow MD 10/10/2019 12:28 P
--- NOTE | 2019-10-10 17:32 | ECGEPIP ---
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
== END ==
LOC: M LAB 07:47
PROVIDERS: ATTEND Family Medicine
DX: M51.34 Other intervertebral disc degeneration, thoracic region (principal); I10 Essential (primary) hypertension; R53.83 Other fatigue; E03.9 Hypothyroidism, unspecified; Z79.899 Other long term (current) drug therapy

== ENCOUNTER 2019-11-05 11:17 | Emergency (ER) | payer OTHER ==
[~2019-11-05] VITALS: Ht 177.8 cm; Wt 116.5 kg
[~2019-11-05 11:17] MED LIST changes: +BUPR150T3 PO; -BUPR150T4 PO; -CYCL-707 PO; -FLOM0.4C39 PO; -RISP-7 PO; +RISP0.5T3 PO
[2019-11-05] MEDS ORDERED: FLOM0.4C39 PO (11:44)
[2019-11-05] MEDS ORDERED: CYCL-707 PO (11:44)
[2019-11-05 11:58] LABS: BASO # 0.1 10^3/uL (0.0-0.2); BASO % 0.9 % (0.0-1.0); EOS # 0.2 10^3/uL (0.0-0.5); HEMATOCRIT 42.7 % (42.0-52.0); HEMOGLOBIN 14.1 g/dl (13.5-17.5); LYMPH # 2.4 10^3/uL (1.5-5.0); LYMPH % 32.4 % (24.0-44.0); MEAN CORPUSCULAR HEMOGLOBIN 29.6 pg (27.0-33.0); MEAN CORPUSCULAR VOLUME 89.7 fl (80.0-96.0); MONO # 0.5 10^3/uL (0.0-0.8); NEUTROPHILS # 4.2 10^3/uL (1.5-8.5); NEUTROPHILS % 56.4 % (36.0-66.0); PLATELET COUNT, AUTOMATED 257 10^3/uL (150-450); RED BLOOD COUNT 4.76 10^6/uL (4.30-6.10); WHITE BLOOD COUNT 7.5 10^3/uL (4.0-10.0)
[2019-11-05 12:09] LABS: INR 0.96; PROTHROMBIN TIME 12.5 SECONDS (11.8-14.0)
[2019-11-05 12:24] LABS: ALBUMIN 3.9 GM/DL (3.2-5.2); BILIRUBIN,DIRECT 0.1 MG/DL (0.0-0.2); BILIRUBIN,TOTAL 0.4 MG/DL (0.2-1.0); CK-MB VALUE MASS 2.5 NG/ML (<3.6); MB/CK RELATIVE INDEX 1.66 (< OR =4); TOTAL PROTEIN 7.2 GM/DL (6.4-8.2); TROPONIN I 0.05 NG/ML (< 0.10)
[2019-11-05] MEDS ORDERED: ASPIRIN 325 MG TAB PO ONE (12:30)
[2019-11-05 12:39] LABS: D-DIMER QUANT < 270 ng/ml (<500)
[2019-11-05 16:19] LABS: CK-MB VALUE MASS 1.8 NG/ML (<3.6); MB/CK RELATIVE INDEX 1.49 (< OR =4); TROPONIN I 0.05 NG/ML (< 0.10)
[2019-11-05 17:42] VITALS: BP 122/63
--- NOTE | 2019-11-05 19:13 | ECGEPIP ---
[facility] - ED Test Date: 2019-11-05 Pat Name: SHABBIR RICO Department: Room: - Gender: Male Victim Advocate: rui : 1960 Requested By: Abdon Love Order Number: [id number] Reading MD: Abdon Love Measurements Intervals [place] Rate: 94 P: 63 [place]: 126 QRS: 1 QRSD: 102 T: 73 QT: 355 QTc: 444 Interpretive Statements SINUS RHYTHM NONSPECIFIC ST & T-WAVE ABNORMALITY 10/10/[address] T WAVE CHANGES Electronically Signed on 11-05-2019 19:12:43 EDT by Abdon Love
--- NOTE | 2019-11-06 00:13 | REP ---
AP PORTABLE CHEST, 11/05/2019. COMPARISON: PA/lateral 10/10/2019. CLINICAL HISTORY: Chest pain. FINDINGS: Lungs are mildly hyperinflated. There is some minor basilar fibrotic change but no infiltrate, effusion, or parenchymal lung lesion. The heart is not grossly enlarged. There is no vascular redistribution or pulmonary edema. The aorta is normal for age. Airway is intact. No widening of the mediastinum. Bones unremarkable. IMPRESSION: 1. Some minor basilar fibrosis and hyperinflation that may reflect some underlying COPD. 2. No cardiomegaly, edema, effusion, infiltrate, or other acute finding. Electronically Signed by Rayshawn Jacobs MD 11/06/2019 08:34 A
--- NOTE | 2019-11-06 16:25 | ECGEPIP ---
[facility] - ED Test Date: 2019-11-05 Pat Name: SHABBIR RICO Department: Room: - Gender: Male Web Mobile Designer: INDIRA : 1960 Requested By: ENRICO GIORDANO Order Number: [id number] Reading MD: Nancy Ochoa Measurements Intervals [place] Rate: 80 P: 77 IN: 132 QRS: 32 QRSD: 89 T: 128 QT: 387 QTc: 449 Interpretive Statements SINUS RHYTHM NONSPECIFIC ST & T-WAVE ABNORMALITY baseline artifact may affect interpretation DECREASED RATE 11/05/19 Electronically Signed on 11-06-2019 16:25:10 EDT by Nancy Ochoa
== END 2019-11-05 17:45 | disposition home or self-care (01) ==
LOC: M ED 11:17
DX: I20.8 Other forms of angina pectoris (principal); F17.200 Nicotine dependence, unspecified, uncomplicated; E11.9 Type 2 diabetes mellitus without complications; I10 Essential (primary) hypertension; E78.5 Hyperlipidemia, unspecified; J44.9 Chronic obstructive pulmonary disease, unspecified; Z79.84 Long term (current) use of oral hypoglycemic drugs; Z79.899 Other long term (current) drug therapy

== ENCOUNTER → 2020-06-07 | Outpatient (CLI) | payer OTHER ==
[~2020-06-07] MED LIST changes: -BUPR150T3 PO; +BUPR150T4 PO; +CYCL-707 PO; +FLOM0.4C39 PO; +RISP-7 PO; -RISP0.5T3 PO
--- NOTE | 2020-06-07 17:20 | REP ---
INDICATION: OTHER NONSPECIFIC ABNORMAL FINDING OF LUNG FIELD. COMPARISON: Comparison CT studies are reviewed from 19 June 2019 and 23 January 2019.. TECHNIQUE: Helical scanning is acquired. 3 mm axial images are generated. Coronal and sagittal MPR and coronal MIP images are generated. FINDINGS: Digital preliminary sign manufacturer radiograph is unremarkable. There are mild emphysematous changes in the upper lobes bilaterally as before. There is a 6 mm noncalcified nodule in the left upper lobe which is unchanged from the 23 January 2019 prior study. There is a 2.8 mm nodular density in the left upper lobe as well on page 33 of 118. This is visible a a in retrospect on the 2019 prior study. There is a granulomatous calcification in the right upper lobe which of course unchanged. No new pulmonary nodule is appreciated. No endobronchial lesion is seen. There are stable small bilateral adrenal adenomas unchanged. Diffuse fatty infiltration of the liver is seen. There is an intrarenal calculus in the upper pole collecting system of the left kidney 3 mm in greatest diameter. Left coronary artery vascular calcification is seen. IMPRESSION: Small stable subcentimeter pulmonary nodules. No acute disease seen. <Electronically signed by Bladimir Barrow > 06/07/20 [id number]
== END ==
LOC: M RAD 16:20
PROVIDERS: ATTEND Physician Assistant
DX: R91.8 Other nonspecific abnormal finding of lung field (principal)

== ENCOUNTER → 2020-09-13 | Outpatient (CLI) | payer OTHER ==
[~2020-09-13] MED LIST changes: +BUPR150T12 PO; -BUPR150T4 PO
[2020-09-13 07:11] LABS: HEMATOCRIT 42.5 % (42.0-52.0); HEMOGLOBIN 13.7 g/dl (13.5-17.5); MEAN CORPUSCULAR HEMOGLOBIN 29.6 pg (27.0-33.0); MEAN CORPUSCULAR HGB CONC 32.2 g/dl (32.0-36.5); MEAN CORPUSCULAR VOLUME 91.8 fl (80.0-96.0); PLATELET COUNT, AUTOMATED 241 10^3/uL (150-450); RED BLOOD COUNT 4.63 10^6/uL (4.30-6.10); WHITE BLOOD COUNT 10.4 10^3/uL (4.0-10.0)
[2020-09-13 07:48] LABS: ALBUMIN 3.5 GM/DL (3.2-5.2); ALT/SGPT 40 U/L (12-78); BILIRUBIN,TOTAL 0.4 MG/DL (0.2-1.0); BLOOD UREA NITROGEN 21 MG/DL (7-18); CALCIUM LEVEL 8.7 MG/DL (8.5-10.1); CARBON DIOXIDE LEVEL 26 MEQ/L (21-32); CHLORIDE LEVEL 106 MEQ/L (98-107); CHOLESTEROL LEVEL 132 MG/DL (<200); CHOLESTEROL RISK RATIO 3.666 (<5); CREATININE FOR GFR 0.77 MG/DL (0.70-1.30); GLOMERULAR FILTRATION RATE > 60.0 (>56); GLUCOSE, FASTING 106 MG/DL (70-100); HDL CHOLESTEROL 36 MG/DL (>40); LDL CHOLESTEROL 55 MG/DL (<100); NON-HDL-C 96 MG/DL; POTASSIUM SERUM 4.4 MEQ/L (3.5-5.1); PROSTATIC SPECIFIC AG MONITOR 2.36 NG/ML (< 4.00); SODIUM LEVEL 137 MEQ/L (136-145); TOTAL PROTEIN 6.9 GM/DL (6.4-8.2); TRIGLYCERIDES LEVEL 207 MG/DL (<150)
[2020-09-13 09:33] LABS: HEMOGLOBIN A1c 6.5 %
[2020-09-13 10:38] LABS: TESTOSTERONE 270 NG/DL (241-827)
== END ==
LOC: M LAB 06:15
PROVIDERS: ATTEND Family Medicine
DX: I10 Essential (primary) hypertension (principal); E03.9 Hypothyroidism, unspecified; R53.83 Other fatigue

== ENCOUNTER → 2020-12-26 | Outpatient (REF) | payer OTHER ==
[2020-12-26 17:29] LABS: APPEARANCE, URINE CLEAR (CLEAR); BACTERIA, URINE AUTO NEGATIVE (NEGATIVE); BILIRUBIN, URINE AUTO NEGATIVE (NEGATIVE); BLOOD, URINE BLOOD NEGATIVE (NEGATIVE); COLOR, URINE YELLOW (YELLOW); GLUCOSE, URINE (UA) AUTO NEGATIVE (NEGATIVE); KETONE, URINE AUTO NEGATIVE (NEGATIVE); LEUKOCYTE ESTERASE, URINE AUTO 2+ (NEGATIVE); NITRITE, URINE AUTO NEGATIVE (NEGATIVE); PROTEIN, URINE AUTO NEGATIVE (NEGATIVE); RBC, URINE AUTO 1 /HPF (0-3); SPECIFIC GRAVITY URINE AUTO 1.017 (1.002-1.035); SQUAMOUS EPITHELIAL CELL UR AU 0 /HPF (0-6); UROBILINOGEN, URINE AUTO 0.2 mg/dL (0.0-2.0); WBC, URINE AUTO 13 /HPF (0-3)
== END ==
LOC: M SMT 16:47
PROVIDERS: ATTEND Nurse Practitioner Women's Health
DX: R31.0 Gross hematuria (principal)

== ENCOUNTER → 2021-06-02 | Outpatient (CLI) | payer OTHER ==
[2021-06-02 17:58] LABS: CALCIUM LEVEL 9.6 MG/DL (8.5-10.1); CREATININE FOR GFR 1.84 MG/DL (0.70-1.30); GLOMERULAR FILTRATION RATE 40.4 (>56); POTASSIUM SERUM 4.1 MEQ/L (3.5-5.1)
== END ==
LOC: M LAB 15:22
PROVIDERS: ATTEND Nurse Practitioner Women's Health
DX: R31.0 Gross hematuria (principal)

== ENCOUNTER → 2021-06-04 | Outpatient (CLI) | payer OTHER ==
[~2021-06-04] MED LIST changes: +ISOVUE-370 76% 100ML VIAL As Ordered ONE
== END ==
LOC: M RAD 16:10
PROVIDERS: ATTEND Nurse Practitioner Women's Health
DX: R93.5 Abnormal findings on diagnostic imaging of other abdominal regions, including retroperitoneum (principal); R31.0 Gross hematuria
CPT/HCPCS: 74178; Q9967

== ENCOUNTER 2021-07-05 15:05 | Emergency (ER) | payer OTHER ==
[~2021-07-05] VITALS: Ht 177.8 cm; Wt 106.0 kg
[2021-07-05 15:05] VITALS: BP 144/76
[~2021-07-05 15:05] MED LIST changes: -ISOVUE-370 76% 100ML VIAL As Ordered ONE
== END 2021-07-05 16:13 | disposition home or self-care (01) ==
LOC: M ED 15:05
DX: T83.091A Other mechanical complication of indwelling urethral catheter, initial encounter (principal); F17.200 Nicotine dependence, unspecified, uncomplicated; E11.9 Type 2 diabetes mellitus without complications; Y74.2 Prosthetic and other implants, materials and accessory general hospital and personal-use devices associated with adverse incidents

== ENCOUNTER → 2021-07-09 | Outpatient (CLI) | payer OTHER ==
[~2021-07-09] MED LIST changes: +ALBU8.5H INH; +ATOR80TA59 PO; +CITA40TA7 PO; +LISI20TA33 PO; +METF-838 PO; +METO1TAB32 PO; +PRAS10TA2 PO; +STIO1AER INH; +TAMS1CAP17 PO
[2021-07-09 13:21] LABS: ALT/SGPT 61 U/L (12-78); BILIRUBIN,TOTAL 0.4 MG/DL (0.2-1.0); BLOOD UREA NITROGEN 20 MG/DL (7-18); CALCIUM LEVEL 9.5 MG/DL (8.5-10.1); CARBON DIOXIDE LEVEL 32 MEQ/L (21-32); CHLORIDE LEVEL 107 MEQ/L (98-107); CHOLESTEROL LEVEL 140 MG/DL (<200); CHOLESTEROL RISK RATIO 4.117 (<5); CREATININE FOR GFR 0.64 MG/DL (0.70-1.30); GLOMERULAR FILTRATION RATE > 60.0 (>56); GLUCOSE, FASTING 80 MG/DL (70-100); HDL CHOLESTEROL 34 MG/DL (>40); LDL CHOLESTEROL 76 MG/DL (<100); NON-HDL-C 106 MG/DL; POTASSIUM SERUM 4.4 MEQ/L (3.5-5.1); SODIUM LEVEL 143 MEQ/L (136-145); TOTAL PROTEIN 6.8 GM/DL (6.4-8.2); TRIGLYCERIDES LEVEL 151 MG/DL (<150)
[2021-07-09 13:39] LABS: MAU/CREAT RATIO 1077.7 MCG/MG (0.0-30.0)
== END ==
LOC: M LAB 11:35
PROVIDERS: ATTEND Nurse Practitioner Adult Health
DX: E11.9 Type 2 diabetes mellitus without complications (principal)

== ENCOUNTER → 2021-07-10 | Outpatient (CLI) | payer OTHER | LOC: M RAD 10:15 | PROVIDERS: ATTEND Physician Assistant | DX: Z87.891 Personal history of nicotine dependence (principal) ==

== ENCOUNTER → 2021-07-10 | Outpatient (REF) | payer OTHER ==
[2021-07-11 13:42] LABS: APPEARANCE, URINE CLOUDY (CLEAR); BACTERIA, URINE AUTO 2+ (NEGATIVE); BILIRUBIN, URINE AUTO NEGATIVE (NEGATIVE); BLOOD, URINE BLOOD 2+ (NEGATIVE); COLOR, URINE AMBER (YELLOW); GLUCOSE, URINE (UA) AUTO NEGATIVE (NEGATIVE); KETONE, URINE AUTO TRACE mg/dL (NEGATIVE); LEUKOCYTE ESTERASE, URINE AUTO 3+ (NEGATIVE); MUCUS, URINE SMALL (NEGATIVE); NITRITE, URINE AUTO NEGATIVE (NEGATIVE); PROTEIN, URINE AUTO 3+ mg/dL (NEGATIVE); RBC, URINE AUTO TNTC /HPF (0-3); SPECIFIC GRAVITY URINE AUTO 1.023 (1.002-1.035); SQUAMOUS EPITHELIAL CELL UR AU 0 /HPF (0-6); UROBILINOGEN, URINE AUTO 0.2 mg/dL (0.0-2.0); WBC, URINE AUTO TNTC /HPF (0-3)
== END ==
LOC: M SMT 12:49
PROVIDERS: ATTEND Physician Assistant
DX: Z01.818 Encounter for other preprocedural examination (principal)

== ENCOUNTER → 2021-07-15 | Outpatient (CLI) | payer OTHER ==
[2021-07-15 15:49] LABS: BASO # 0.1 10^3/uL (0.0-0.2); BASO % 0.7 % (0.0-1.0); EOS # 0.3 10^3/uL (0.0-0.5); EOS % 2.5 % (0.0-3.0); HEMATOCRIT 40.7 % (42.0-52.0); HEMOGLOBIN 13.5 g/dl (13.5-17.5); LYMPH # 3.2 10^3/uL (1.5-5.0); LYMPH % 25.8 % (24.0-44.0); MEAN CORPUSCULAR HEMOGLOBIN 29.2 pg (27.0-33.0); MEAN CORPUSCULAR HGB CONC 33.2 g/dl (32.0-36.5); MEAN CORPUSCULAR VOLUME 87.9 fl (80.0-96.0); MONO # 0.8 10^3/uL (0.0-0.8); MONO % 6.6 % (2.0-8.0); NEUTROPHILS # 7.7 10^3/uL (1.5-8.5); NEUTROPHILS % 63.3 % (36.0-66.0); PLATELET COUNT, AUTOMATED 421 10^3/uL (150-450); RED BLOOD COUNT 4.63 10^6/uL (4.30-6.10); WHITE BLOOD COUNT 12.2 10^3/uL (4.0-10.0)
== END ==
LOC: M RAD 15:07
PROVIDERS: ATTEND Physician Assistant
DX: Z01.818 Encounter for other preprocedural examination (principal)

== ENCOUNTER → 2021-07-16 | Outpatient (CLI) | payer OTHER | LOC: M LABSMTC 12:01 | PROVIDERS: ATTEND Anesthesiology | DX: Z11.52 Encounter for screening for COVID-19 (principal); Z20.822 Contact with and (suspected) exposure to COVID-19 ==

== ENCOUNTER 2021-07-21 11:21 | Day surgery (SDC) | payer OTHER ==
[~2021-07-21] VITALS: Ht 180.3 cm; Wt 103.1 kg
[~2021-07-21 11:21] MED LIST changes: +LR 1,000 ML IV ONE; +ceFAZolin SOD 2 GM in IV 1 EA IV ONE
[2021-07-21] MEDS ORDERED: ROCURONIUM BROMIDE 50 MG/5 ML VIAL As Ordered ONE ×2 (11:50→13:26)
[2021-07-21] MEDS ORDERED: propofoL 200 MG/20 ML VIAL As Ordered ONE (11:51)
[2021-07-21] MEDS ORDERED: fentaNYL 250 MCG/5 ML INJECTION As Ordered ONE (11:51)
[2021-07-21] MEDS ORDERED: ONDANSETRON 4MG/2ML VIAL As Ordered ONE (11:51)
[2021-07-21] MEDS ORDERED: MIDAZOLAM INJ 2MG/2ML VIAL (J2250 PER 1MG) As Ordered ONE (11:51)
[2021-07-21] MEDS ORDERED: LIDOCAINE 2% 100MG/5ML SDV (FOR ANES.) As Ordered ONE (11:51)
[2021-07-21] MEDS ORDERED: dexameTHASONE 4 MG/ML 1ML VIAL (J1100 PER 1MG) As Ordered ONE (11:56)
[2021-07-21] MEDS ORDERED: CIPR500T39 PO (12:08)
[2021-07-21] MEDS ORDERED: ARNU1INH3 INH (12:08)
[2021-07-21] MEDS ORDERED: ACET650T61 PO (12:08)
[2021-07-21] MEDS ORDERED: STIO1AER INH (12:08)
[2021-07-21] MEDS ORDERED: PHENYLephrine 500MCG 5ML (100MCG/ML) SYRINGE As Ordered ONE (12:57)
[2021-07-21] MEDS ORDERED: ePHEDrine SULFATE 25 MG/5 ML(5MG/ML) SYRINGE As Ordered ONE (12:57)
[2021-07-21] MEDS ORDERED: METOCLOPRAMIDE INJ 10MG/2ML VIAL (J2765 PER 1) As Ordered ONE (13:07)
[2021-07-21] MEDS ORDERED: ACETAMINOPHEN 1000MG 100ML IV BTL (OFIRMEV) (J0131 PER 10MG) As Ordered ONE (13:26)
[2021-07-21] MEDS ORDERED: SUGAMMADEX SODIUM 500 MG/5 ML VIAL (BRIDION) As Ordered ONE (14:33)
[2021-07-21] MEDS ORDERED: FUROSEMIDE 100MG/10ML VIAL (J1940) As Ordered ONE (14:58)
[2021-07-21] MEDS ORDERED: HYDROMORPHONE HCL 0.5 MG/ 0.5 ML SYRINGE (J1170 PER 1) IV PRN (15:40)
[2021-07-21] MEDS ORDERED: ONDANSETRON 4MG/2ML VIAL IV PRN (15:40)
[2021-07-21] MEDS ORDERED: LR 1,000 ML IV SCH (15:40)
[2021-07-21] MEDS ORDERED: ACETAMINOPHEN TAB 650MG DOSE (2X325MG) PO PRN (15:40)
[2021-07-21] MEDS: oxyCODONE 5MG TAB PO PRN ×2 (15:48→16:17)
[2021-07-21] MEDS: fentaNYL 100 MCG/2 ML INJECTION IV PRN ×4 (15:49→16:16)
[2021-07-21 16:40] VITALS: BP 159/75
== END 2021-07-21 17:25 | disposition home or self-care (01) ==
LOC: M SDC 11:21
PROVIDERS: ATTEND Urology
DX: N40.1 Benign prostatic hyperplasia with lower urinary tract symptoms (principal); R33.9 Retention of urine, unspecified; I11.9 Hypertensive heart disease without heart failure; E11.9 Type 2 diabetes mellitus without complications; I25.10 Atherosclerotic heart disease of native coronary artery without angina pectoris; Z95.5 Presence of coronary angioplasty implant and graft; E78.00 Pure hypercholesterolemia, unspecified; J44.9 Chronic obstructive pulmonary disease, unspecified; M19.90 Unspecified osteoarthritis, unspecified site; F17.210 Nicotine dependence, cigarettes, uncomplicated; Z79.899 Other long term (current) drug therapy; Z79.84 Long term (current) use of oral hypoglycemic drugs; Z79.2 Long term (current) use of antibiotics; Z79.01 Long term (current) use of anticoagulants; Z79.51 Long term (current) use of inhaled steroids
CPT/HCPCS: 52601; J0131; J1100; J1940; J2250; J2370; J2405; J2765; J3010

== ENCOUNTER → 2021-08-08 | Outpatient (REF) | payer OTHER ==
[~2021-08-08] MED LIST changes: +ACET650T61 PO; +ARNU1INH3 INH; +CIPR500T39 PO; -LR 1,000 ML IV ONE; -ceFAZolin SOD 2 GM in IV 1 EA IV ONE
[2021-08-08 17:34] LABS: APPEARANCE, URINE TURBID (CLEAR); BACTERIA, URINE AUTO 3+ (NEGATIVE); BILIRUBIN, URINE AUTO NEGATIVE (NEGATIVE); BLOOD, URINE BLOOD 3+ (NEGATIVE); COLOR, URINE YELLOW (YELLOW); GLUCOSE, URINE (UA) AUTO NEGATIVE (NEGATIVE); KETONE, URINE AUTO NEGATIVE (NEGATIVE); LEUKOCYTE ESTERASE, URINE AUTO 2+ (NEGATIVE); MUCUS, URINE SMALL (NEGATIVE); NITRITE, URINE AUTO NEGATIVE (NEGATIVE); PROTEIN, URINE AUTO 2+ mg/dL (NEGATIVE); RBC, URINE AUTO 165 /HPF (0-3); SPECIFIC GRAVITY URINE AUTO 1.016 (1.002-1.035); SQUAMOUS EPITHELIAL CELL UR AU 0 /HPF (0-6); UROBILINOGEN, URINE AUTO 0.2 mg/dL (0.0-2.0); WBC, URINE AUTO TNTC /HPF (0-3)
== END ==
LOC: M SMT 16:50
PROVIDERS: ATTEND Physician Assistant
DX: R30.0 Dysuria (principal)

== ENCOUNTER 2021-09-16 14:24 | Inpatient (IN) | payer OTHER ==
[~2021-09-16] VITALS: Ht 180.3 cm; Wt 109.8 kg
[2021-09-16] MEDS: COMBIVENT RESPIMAT 100-20MCG INHALER 4GM INH SCH ×3 (14:35→15:29)
[2021-09-16] MEDS ORDERED: ACETAMINOPHEN 500 MG TAB PO ONE (14:50)
[2021-09-16 15:06] LABS: HEMOGLOBIN 13.2 g/dl (13.5-17.5); MEAN CORPUSCULAR HEMOGLOBIN 27.9 pg (27.0-33.0); MEAN CORPUSCULAR HGB CONC 32.2 g/dl (32.0-36.5); MEAN CORPUSCULAR VOLUME 86.7 fl (80.0-96.0); PLATELET COUNT, AUTOMATED 162 10^3/uL (150-450); RED BLOOD COUNT 4.73 10^6/uL (4.30-6.10); WHITE BLOOD COUNT 4.8 10^3/uL (4.0-10.0)
[2021-09-16 15:29] LABS: LYMPHOCYTES 11 % (16-44); METAMYELOCYTES 3 % (0-0); NEUTROPHILS 55 % (28-66); TOXIC VACUOLATION 1+
[2021-09-16 15:30] LABS: PLATELET ESTIMATE NORMAL (NORMAL)
[2021-09-16] MEDS ORDERED: cefTRIAXone SOD 2 GM in D5W MINI-BAG PLUS 50 ML IV ONE (15:35)
[2021-09-16 15:45] LABS: ALBUMIN 2.7 GM/DL (3.2-5.2); BILIRUBIN,DIRECT 0.7 MG/DL (0.0-0.2); BILIRUBIN,TOTAL 1.2 MG/DL (0.2-1.0); CALCIUM LEVEL 8.3 MG/DL (8.5-10.1); CREATININE FOR GFR 2.14 MG/DL (0.70-1.30); GLOMERULAR FILTRATION RATE 33.8 (>56); POTASSIUM SERUM 3.6 MEQ/L (3.5-5.1); THYROID STIMULATING HORMONE 0.577 uIU/ML (0.358-3.740); THYROXINE (T4) 7.1 UG/DL (4.5-12.0); TOTAL PROTEIN 6.5 GM/DL (6.4-8.2)
[2021-09-16] MEDS ORDERED: NS 2,990 ML in IV 1 EA IV ONE (15:55)
[2021-09-16] MEDS ORDERED: LR 1,000 ML IV SCH (18:30)
[2021-09-16] MEDS ORDERED: med note (18:59)
[2021-09-16] MEDS ORDERED: HOME MED LIST COMPLETE! XX SCH (19:00)
[2021-09-16] MEDS: ADVAIR HFA 115/21MCG INHALER INH SCH (20:17)
[2021-09-16] MEDS ORDERED: ACETAMINOPHEN TAB 650MG DOSE (2X325MG) PO ONE (21:00)
[2021-09-16 22:02] LABS: CK-MB VALUE MASS 2.3 NG/ML (<3.6); MB/CK RELATIVE INDEX 2.28 (< OR =4)
[2021-09-16 22:39] VITALS: BP 84/54
[2021-09-16 22:47] VITALS: BP 97/61
[2021-09-16 23:39] LABS: CK-MB VALUE MASS 2.8 NG/ML (<3.6); MB/CK RELATIVE INDEX 2.5 (< OR =4)
[2021-09-16] MEDS ORDERED: ALBUTEROL SULFATE 2.5 MG/0.5 ML INH NEB SOLN NEB PRN (23:45)
[2021-09-16] MEDS: HEPARIN SOD (PORCINE) 5000UNITS/ML 1ML VIAL/SYRINGE SQ SCH (23:47)
[2021-09-17] VITALS (9 sets, daily range): BP systolic 94–136; BP diastolic 62–88; PULSE 137
[2021-09-17] MEDS: THIAMINE INJection 500 MG in NS 100 ML IV SCH ×4 (00:04→21:30)
[2021-09-17] MEDS ORDERED: methylPREDNISolone 125MG 2ML VIAL IV ONE (02:50)
[2021-09-17] MEDS ORDERED: NITROGLYCERIN 0.4 MG SUBL TABLET As Ordered ONE (02:51)
[2021-09-17] MEDS ORDERED: NITROGLYCERIN 0.3 MG SUBL TAB SL STA (02:51)
[2021-09-17] MEDS ORDERED: methylPREDNISolone 125MG 2ML VIAL As Ordered ONE (02:53)
[2021-09-17] MEDS ORDERED: ASPIRIN 81 MG CHEW TABLET PO ONE (02:55)
[2021-09-17] MEDS ORDERED: NITROGLYCERIN 0.4 MG SUBL TABLET SL STA (02:58)
[2021-09-17 03:31] LABS: HEMATOCRIT 39.3 % (42.0-52.0); HEMOGLOBIN 11.9 g/dl (13.5-17.5); LYMPH # 0.5 10^3/uL (1.5-5.0); LYMPH % 35.9 % (24.0-44.0); MEAN CORPUSCULAR HGB CONC 30.3 g/dl (32.0-36.5); MEAN CORPUSCULAR VOLUME 92.5 fl (80.0-96.0); MONO % 2.3 % (2.0-8.0); NEUTROPHILS % 61.8 % (36.0-66.0); PLATELET COUNT, AUTOMATED 109 10^3/uL (150-450); RED BLOOD COUNT 4.25 10^6/uL (4.30-6.10); WHITE BLOOD COUNT 1.3 10^3/uL (4.0-10.0)
[2021-09-17] MEDS ORDERED: ACETAMINOPHEN TAB 650MG DOSE (2X325MG) PO PRN (03:35)
[2021-09-17 03:37] LABS: NEUTROPHILS # 0.8 10^3/uL (1.5-8.5)
[2021-09-17 03:39] LABS: VENOUS BASE EXCESS -13.8 (-2.0-2.0); VENOUS HCO3 16.2 MEQ/L (23.0-27.0); VENOUS O2 SATURATION 61.1 % (60.0-80.0); VENOUS PARTIAL PRESSURE CO2 54.6 mmHg (38.0-50.0); VENOUS PARTIAL PRESSURE O2 43.5 mmHg (30.0-50.0); VENOUS PH 7.089 UNITS (7.330-7.430); VENOUS STANDARD HCO3 13.3 MEQ/L; VENOUS TOTAL CO2 17.8 MEQ/L (24.0-28.0)
[2021-09-17] MEDS: IPRATROPIUM 0.5MG/ALBUTEROL 2.5MG INH SOL UD 3ML (DUONEB) NEB SCH ×4 (03:42→15:27)
[2021-09-17] MEDS: PIPERACILLIN/TAZOBACTAM SOD 4.5 GM in D5W MINI-BAG PLUS 50 ML IV SCH ×4 (04:01→21:34)
[2021-09-17] MEDS: NS 1,000 ML IV SCH ×3 (04:02→21:34)
[2021-09-17 04:13] LABS: ALBUMIN 2.3 GM/DL (3.2-5.2); BILIRUBIN,TOTAL 0.6 MG/DL (0.2-1.0); CALCIUM LEVEL 8.6 MG/DL (8.5-10.1); CREATININE FOR GFR 2.13 MG/DL (0.70-1.30); MAGNESIUM LEVEL 1.7 MG/DL (1.8-2.4); PHOSPHORUS LEVEL 5.8 MG/DL (2.5-4.9); POTASSIUM SERUM 4.8 MEQ/L (3.5-5.1); TOTAL PROTEIN 6.8 GM/DL (6.4-8.2)
[2021-09-17 04:14] LABS: CK-MB VALUE MASS 5.3 NG/ML (<3.6); MB/CK RELATIVE INDEX 3.29 (< OR =4)
[2021-09-17] MEDS: HEPARIN SOD (PORCINE) 5000UNITS/ML 1ML VIAL/SYRINGE SQ SCH ×3 (05:23→21:29)
[2021-09-17] MEDS: MAG SULF 1GM/100ML (MAG RUN) 1 GM in IV 1 EA IV SCH ×2 (05:23→07:20)
[2021-09-17] MEDS ORDERED: HEPARIN SOD (PORCINE) 5000UNITS/ML 1ML VIAL/SYRINGE SC SCH (06:00)
[2021-09-17] MEDS ORDERED: TIOTROPIUM INHALER/CAPSULE (SPIRIVA) INH SCH (08:00)
[2021-09-17] MEDS: ADVAIR HFA 115/21MCG INHALER INH SCH ×2 (08:05→19:57)
[2021-09-17] MEDS ORDERED: NS 1,000 ML IV ONE (08:15)
[2021-09-17] MEDS ORDERED: cefTRIAXone SOD 1 GM in D5W MINI-BAG PLUS 50 ML IV SCH (09:00)
[2021-09-17] MEDS ORDERED: FLUBLOK(EGG FREE)(QUAD)INFLUENZA VACC 0.5ML SYRINGE 18YRS & OLDER IM ONE (09:00)
[2021-09-17] MEDS: ATORVASTATIN 20 MG TAB PO SCH (09:40)
[2021-09-17] MEDS ORDERED: methylPREDNISolone 40MG 1ML VIAL IV SCH (11:00)
[2021-09-17 14:58] LABS: ABG BASE EXCESS -7.3 (-2.0-2.0); ABG HCO3 14.7 MEQ/L (22.0-26.0); ABG O2 SATURATION 95.1 % (95.0-99.0); ABG PARTIAL PRESSURE CO2 21.6 mmHg (35.0-45.0); ABG PARTIAL PRESSURE O2 71.4 mmHg (75.0-100.0); ABG STANDARD HCO3 18.5 MEQ/L (22.0-26.0); ABG TOTAL CO2 15.4 MEQ/L (22.0-29.0); ABG pH (ARTERIAL) 7.451 UNITS (7.350-7.450)
[2021-09-17] MEDS: IPRATROPIUM 0.02% SOLN 0.5MG 2.5ML NEB INH SCH ×2 (16:40→19:58)
[2021-09-17] MEDS ORDERED: ISOVUE-300 61% 50ML VIAL As Ordered ONE (17:19)
[2021-09-17] MEDS ORDERED: propofoL 200 MG/20 ML VIAL As Ordered ONE (17:43)
[2021-09-17] MEDS ORDERED: MIDAZOLAM INJ 2MG/2ML VIAL (J2250 PER 1MG) As Ordered ONE (17:43)
[2021-09-17] MEDS ORDERED: dexameTHASONE 4 MG/ML 1ML VIAL (J1100 PER 1MG) As Ordered ONE (17:43)
[2021-09-17] MEDS ORDERED: ONDANSETRON 4MG/2ML VIAL As Ordered ONE (17:43)
[2021-09-17] MEDS ORDERED: fentaNYL 100 MCG/2 ML INJECTION As Ordered ONE (17:43)
[2021-09-17] MEDS ORDERED: LIDOCAINE 2% 100MG/5ML SDV (FOR ANES.) As Ordered ONE (17:43)
[2021-09-17] MEDS: methylPREDNISolone 40MG 1ML VIAL IV SCH ×2 (17:49→23:40)
[2021-09-17] MEDS ORDERED: LEVALBUTEROL 1.25 MG/0.5 ML CONCENTRATE NEB NEB STA (18:03)
[2021-09-17] MEDS ORDERED: INSULIN LISPRO (NovoLOG) PER UNIT SC PRN (18:05)
[2021-09-17] MEDS ORDERED: ONDANSETRON 4MG/2ML VIAL IV PRN (18:05)
[2021-09-17] MEDS ORDERED: LR 1,000 ML IV SCH (18:05)
[2021-09-17] MEDS ORDERED: oxyCODONE 5MG TAB PO PRN (18:05)
[2021-09-17] MEDS ORDERED: LEVALBUTEROL 1.25 MG/0.5 ML CONCENTRATE NEB INH ONE (18:05)
[2021-09-17] MEDS ORDERED: fentaNYL 100 MCG/2 ML INJECTION IV PRN (18:05)
[2021-09-17] MEDS ORDERED: KETAMINE HCL 200 MG/20 ML VIAL As Ordered ONE (18:21)
[2021-09-17] MEDS: LEVALBUTEROL 1.25 MG/0.5 ML CONCENTRATE NEB INH SCH (19:59)
[2021-09-17] MEDS: oxyBUTYnin 5 MG TAB PO SCH (21:29)
[2021-09-18] VITALS (8 sets, daily range): BP systolic 106–173; BP diastolic 72–116; PULSE 153
[2021-09-18] MEDS: PIPERACILLIN/TAZOBACTAM SOD 4.5 GM in D5W MINI-BAG PLUS 50 ML IV SCH (03:54)
[2021-09-18] MEDS: LEVALBUTEROL 1.25 MG/0.5 ML CONCENTRATE NEB INH SCH ×4 (03:57→19:23)
[2021-09-18] MEDS: IPRATROPIUM 0.02% SOLN 0.5MG 2.5ML NEB INH SCH ×6 (03:57→19:23)
[2021-09-18] MEDS: methylPREDNISolone 40MG 1ML VIAL IV SCH ×4 (05:28→23:08)
[2021-09-18] MEDS: HEPARIN SOD (PORCINE) 5000UNITS/ML 1ML VIAL/SYRINGE SQ SCH (05:28)
[2021-09-18] MEDS: THIAMINE INJection 500 MG in NS 100 ML IV SCH (06:07)
[2021-09-18 06:09] LABS: HEMATOCRIT 34.1 % (42.0-52.0); HEMOGLOBIN 10.7 g/dl (13.5-17.5); MEAN CORPUSCULAR HEMOGLOBIN 27.4 pg (27.0-33.0); MEAN CORPUSCULAR HGB CONC 31.4 g/dl (32.0-36.5); MEAN CORPUSCULAR VOLUME 87.4 fl (80.0-96.0); WHITE BLOOD COUNT 12.9 10^3/uL (4.0-10.0)
[2021-09-18 06:11] LABS: CALCIUM LEVEL 7.7 MG/DL (8.5-10.1); CREATININE FOR GFR 1.32 MG/DL (0.70-1.30); GLOMERULAR FILTRATION RATE 59.1 (>56); MAGNESIUM LEVEL 2.6 MG/DL (1.8-2.4); POTASSIUM SERUM 4.1 MEQ/L (3.5-5.1)
[2021-09-18 06:41] LABS: PLATELET COUNT, AUTOMATED 54 10^3/uL (150-450)
[2021-09-18 06:46] LABS: LYMPHOCYTES 10 % (16-44); MONOCYTES 1 % (0-5); NEUTROPHILS 85 % (28-66)
[2021-09-18 06:47] LABS: PLATELET ESTIMATE DECREASED (NORMAL)
[2021-09-18] MEDS: ADVAIR HFA 115/21MCG INHALER INH SCH ×2 (07:43→19:23)
[2021-09-18] MEDS: ATORVASTATIN 20 MG TAB PO SCH (08:43)
[2021-09-18] MEDS: oxyBUTYnin 5 MG TAB PO SCH ×2 (08:43→21:22)
[2021-09-18] MEDS: NS 1,000 ML IV SCH (08:43)
[2021-09-18] MEDS ORDERED: DEXTROSE 50% 50 ML SYRINGE IV PRN (09:45)
[2021-09-18] MEDS ORDERED: GLUCOSE 4GM CHEW TABLET PO PRN (09:45)
[2021-09-18] MEDS ORDERED: GLUCAGON INJ 1MG VIAL SC PRN (09:45)
[2021-09-18] MEDS: cefTRIAXone SOD 1 GM in D5W MINI-BAG PLUS 50 ML IV SCH (11:13)
[2021-09-18] MEDS ORDERED: NITROGLYCERIN 0.4 MG SUBL TABLET As Ordered ONE (11:39)
[2021-09-18] MEDS ORDERED: AMIODARONE HCL 150 MG in IV 1 EA IV SCH (11:45)
[2021-09-18] MEDS ORDERED: ASPIRIN 81 MG CHEW TABLET PO ONE (11:45)
[2021-09-18] MEDS ORDERED: NITROGLYCERIN 0.4 MG SUBL TABLET SL PRN (11:45)
[2021-09-18 12:02] LABS: HEMATOCRIT 34.3 % (42.0-52.0); MEAN CORPUSCULAR HEMOGLOBIN 28.1 pg (27.0-33.0); MEAN CORPUSCULAR HGB CONC 32.1 g/dl (32.0-36.5); MEAN CORPUSCULAR VOLUME 87.7 fl (80.0-96.0); RED BLOOD COUNT 3.91 10^6/uL (4.30-6.10); WHITE BLOOD COUNT 13.3 10^3/uL (4.0-10.0)
[2021-09-18 12:03] LABS: PLATELET COUNT, AUTOMATED 65 10^3/uL (150-450)
[2021-09-18 12:25] LABS: CALCIUM LEVEL 7.6 MG/DL (8.5-10.1); CREATININE FOR GFR 1.44 MG/DL (0.70-1.30); GLOMERULAR FILTRATION RATE 53.5 (>56); POTASSIUM SERUM 3.8 MEQ/L (3.5-5.1)
[2021-09-18 12:29] LABS: CK-MB VALUE MASS 3.2 NG/ML (<3.6); MB/CK RELATIVE INDEX 4.16 (< OR =4)
[2021-09-18] MEDS: INSULIN LISPRO (NovoLOG) PER UNIT SC SCH ×3 (12:31→21:28)
[2021-09-18 18:54] LABS: INR 1.17; PROTHROMBIN TIME 15.3 SECONDS (12.7-14.5)
[2021-09-18 18:55] LABS: PARTIAL THROMBOPLASTIN TIME 29.7 SECONDS (25.9-37.0)
[2021-09-18 18:57] LABS: D-DIMER QUANT 3787.84 ng/ml (<500)
[2021-09-19] VITALS (10 sets, daily range): BP systolic 132–172; BP diastolic 83–98; O2SAT 97–100
[2021-09-19] MEDS: IPRATROPIUM 0.02% SOLN 0.5MG 2.5ML NEB INH SCH ×6 (01:58→20:00)
[2021-09-19] MEDS: methylPREDNISolone 40MG 1ML VIAL IV SCH ×3 (05:03→21:03)
[2021-09-19 05:42] LABS: HEMATOCRIT 37.9 % (42.0-52.0); HEMOGLOBIN 11.8 g/dl (13.5-17.5); MEAN CORPUSCULAR HEMOGLOBIN 27.5 pg (27.0-33.0); MEAN CORPUSCULAR HGB CONC 31.1 g/dl (32.0-36.5); MEAN CORPUSCULAR VOLUME 88.3 fl (80.0-96.0); RED BLOOD COUNT 4.29 10^6/uL (4.30-6.10); WHITE BLOOD COUNT 11.6 10^3/uL (4.0-10.0)
[2021-09-19 05:50] LABS: PLATELET COUNT, AUTOMATED 63 10^3/uL (150-450)
[2021-09-19 06:02] LABS: BLOOD UREA NITROGEN 33 MG/DL (7-18); CARBON DIOXIDE LEVEL 19 MEQ/L (21-32); CHLORIDE LEVEL 111 MEQ/L (98-107); CREATININE FOR GFR 1.04 MG/DL (0.70-1.30); GLOMERULAR FILTRATION RATE > 60.0 (>56); GLUCOSE, FASTING 253 MG/DL (70-100); MAGNESIUM LEVEL 2.4 MG/DL (1.8-2.4); POTASSIUM SERUM 4.5 MEQ/L (3.5-5.1); SODIUM LEVEL 140 MEQ/L (136-145)
[2021-09-19 07:05] LABS: LYMPHOCYTES 10 % (16-44); METAMYELOCYTES 1 % (0-0); MYELOCYTES 2 % (0-0); NEUTROPHILS 83 % (28-66); PLATELET ESTIMATE DECREASED (NORMAL)
[2021-09-19 07:07] LABS: BURR CELLS 2+
[2021-09-19] MEDS: ADVAIR HFA 115/21MCG INHALER INH SCH ×2 (07:28→20:03)
[2021-09-19] MEDS: LEVALBUTEROL 1.25 MG/0.5 ML CONCENTRATE NEB INH SCH ×4 (07:30→20:00)
[2021-09-19 08:29] LABS: PHOSPHORUS LEVEL 2.7 MG/DL (2.5-4.9)
[2021-09-19] MEDS: ATORVASTATIN 20 MG TAB PO SCH (08:47)
[2021-09-19] MEDS: oxyBUTYnin 5 MG TAB PO SCH ×2 (08:47→21:04)
[2021-09-19] MEDS: INSULIN LISPRO (NovoLOG) PER UNIT SC SCH ×4 (08:47→20:55)
[2021-09-19] MEDS: FONDAPARINUX SODIUM 2.5 MG/0.5 ML SYR (J1652 PER 0.5MG) SC SCH (08:48)
[2021-09-19] MEDS ORDERED: METOPROLOL SUCC *XL* 25MG TAB (TopROL *XL*) PO SCH (09:00)
[2021-09-19] MEDS: cefTRIAXone SOD 1 GM in D5W MINI-BAG PLUS 50 ML IV SCH (10:53)
[2021-09-19] MEDS: NICOTINE 21MG/24HR 1 EA TRANSDERMAL TD SCH (18:28)
[2021-09-19] MEDS ORDERED: LORazepam 1 MG TAB PO ONE (18:30)
[2021-09-19] MEDS ORDERED: LEVEMIR (INSULIN DETEMIR) 1 UNITS/0.01ML SC SCH (21:00)
[2021-09-20] VITALS: BP 159/86
[2021-09-20] MEDS: IPRATROPIUM 0.02% SOLN 0.5MG 2.5ML NEB INH SCH ×4 (03:24→11:14)
[2021-09-20 04:00] VITALS: BP 172/100
[2021-09-20] MEDS ORDERED: NICOTINE 21MG/24HR 1 EA TRANSDERMAL TD ONE (04:30)
[2021-09-20] MEDS ORDERED: hydrOXYzine 25 MG TAB PO STA (04:32)
[2021-09-20] MEDS: methylPREDNISolone 40MG 1ML VIAL IV SCH (04:45)
[2021-09-20 07:30] LABS: HEMOGLOBIN 11.5 g/dl (13.5-17.5); MEAN CORPUSCULAR HEMOGLOBIN 27.3 pg (27.0-33.0); MEAN CORPUSCULAR HGB CONC 31.9 g/dl (32.0-36.5); MEAN CORPUSCULAR VOLUME 85.5 fl (80.0-96.0); RED BLOOD COUNT 4.21 10^6/uL (4.30-6.10); WHITE BLOOD COUNT 11.6 10^3/uL (4.0-10.0)
[2021-09-20 07:33] LABS: PLATELET COUNT, AUTOMATED 68 10^3/uL (150-450)
[2021-09-20] MEDS: LEVALBUTEROL 1.25 MG/0.5 ML CONCENTRATE NEB INH SCH ×2 (07:40→11:14)
[2021-09-20] MEDS: ADVAIR HFA 115/21MCG INHALER INH SCH (07:40)
[2021-09-20 07:50] LABS: BLOOD UREA NITROGEN 33 MG/DL (7-18); CALCIUM LEVEL 8.3 MG/DL (8.5-10.1); CARBON DIOXIDE LEVEL 21 MEQ/L (21-32); CHLORIDE LEVEL 110 MEQ/L (98-107); GLOMERULAR FILTRATION RATE > 60.0 (>56); GLUCOSE, FASTING 188 MG/DL (70-100); MAGNESIUM LEVEL 1.8 MG/DL (1.8-2.4); POTASSIUM SERUM 4.4 MEQ/L (3.5-5.1); SODIUM LEVEL 137 MEQ/L (136-145)
[2021-09-20 08:00] VITALS: O2SAT 96
[2021-09-20 08:13] VITALS: BP 150/80
[2021-09-20 08:14] LABS: LYMPHOCYTES 5 % (16-44); METAMYELOCYTES 1 % (0-0); NEUTROPHILS 90 % (28-66); PLASMA CELL 1 % (0-0)
[2021-09-20 08:15] LABS: OVALOCYTES 1+; PLATELET ESTIMATE DECREASED (NORMAL); POIKILOCYTOSIS 1+
[2021-09-20 08:17] LABS: SCHISTOCYTES 1+
[2021-09-20 08:57] VITALS: BP 150/80
[2021-09-20] MEDS: ATORVASTATIN 20 MG TAB PO SCH (08:57)
[2021-09-20] MEDS: INSULIN LISPRO (NovoLOG) PER UNIT SC SCH ×2 (08:57→11:52)
[2021-09-20] MEDS: oxyBUTYnin 5 MG TAB PO SCH (08:58)
[2021-09-20] MEDS: FONDAPARINUX SODIUM 2.5 MG/0.5 ML SYR (J1652 PER 0.5MG) SC SCH (08:58)
[2021-09-20] MEDS: NICOTINE 21MG/24HR 1 EA TRANSDERMAL TD SCH (08:59)
[2021-09-20] MEDS ORDERED: METOPROLOL SUCC (TopROL XL) 50MG **XL** TAB PO SCH (09:00)
[2021-09-20] MEDS: cefTRIAXone SOD 1 GM in D5W MINI-BAG PLUS 50 ML IV SCH (09:35)
[2021-09-20] MEDS ORDERED: PRED10TA2 PO (09:57)
[2021-09-20] MEDS ORDERED: CEFD300C41 PO (09:57)
[2021-09-20] MEDS ORDERED: SING10TA32 PO (09:57)
[2021-09-20] MEDS ORDERED: STIO1AER INH (10:14)
[2021-09-20] MEDS ORDERED: ARNU1INH3 INH (10:14)
[2021-09-20] MEDS ORDERED: ALBU8.5H INH (10:14)
[2021-09-20] MEDS: MAG SULF 1GM/100ML (MAG RUN) 1 GM in IV 1 EA IV SCH ×2 (10:37→11:31)
[2021-09-25 15:08] LABS: UNFRACTIONATED HEPARIN HI DOSE <1 % (0-20); UNFRACTIONATED HEPARIN LOW DOS <1 % (0-20)
== END 2021-09-20 12:09 | disposition home or self-care (01) | DRG 720 ==
LOC: M ED 14:24 → M ED INP 18:18 → ENRESERV 19:53 → M PCU 22:24
PROVIDERS: ADMIT Internal Medicine; ATTEND Internal Medicine
PROC: 0T778DZ Dilation of Left Ureter with Intraluminal Device, Via Natural or Artificial Opening Endoscopic (ICD-10-PCS; principal; 2021-09-18)
DX: A41.51 Sepsis due to Escherichia coli [E. coli] (principal); N17.9 Acute kidney failure, unspecified; E87.2 Acidosis; D69.6 Thrombocytopenia, unspecified; J44.1 Chronic obstructive pulmonary disease with (acute) exacerbation; I47.1 Supraventricular tachycardia; I10 Essential (primary) hypertension; E78.5 Hyperlipidemia, unspecified; E11.9 Type 2 diabetes mellitus without complications; I25.118 Atherosclerotic heart disease of native coronary artery with other forms of angina pectoris; F32.A Depression, unspecified; F41.9 Anxiety disorder, unspecified; F17.200 Nicotine dependence, unspecified, uncomplicated; N13.6 Pyonephrosis; J30.1 Allergic rhinitis due to pollen; J30.81 Allergic rhinitis due to animal (cat) (dog) hair and dander; D64.9 Anemia, unspecified; J30.89 Other allergic rhinitis; R06.03 Acute respiratory distress; Z79.84 Long term (current) use of oral hypoglycemic drugs; Z95.5 Presence of coronary angioplasty implant and graft; Z87.442 Personal history of urinary calculi; Z79.82 Long term (current) use of aspirin; Z79.899 Other long term (current) drug therapy; Z20.822 Contact with and (suspected) exposure to COVID-19

== ENCOUNTER → 2021-10-12 | Outpatient (CLI) | payer OTHER ==
[~2021-10-12] MED LIST changes: +CEFD300C41 PO; +PRED10TA2 PO; +SING10TA32 PO; +med note
== END ==
LOC: M LABSMTC 12:17
PROVIDERS: ATTEND Anesthesiology
DX: Z01.812 Encounter for preprocedural laboratory examination (principal)

== ENCOUNTER → 2021-10-13 | Outpatient (REF) | payer OTHER ==
[2021-10-14 10:46] LABS: APPEARANCE, URINE CLOUDY (CLEAR); BACTERIA, URINE AUTO 1+ (NEGATIVE); BILIRUBIN, URINE AUTO NEGATIVE (NEGATIVE); BLOOD, URINE BLOOD 2+ (NEGATIVE); COLOR, URINE YELLOW (YELLOW); GLUCOSE, URINE (UA) AUTO NEGATIVE (NEGATIVE); KETONE, URINE AUTO NEGATIVE (NEGATIVE); LEUKOCYTE ESTERASE, URINE AUTO 3+ (NEGATIVE); MUCUS, URINE SMALL (NEGATIVE); NITRITE, URINE AUTO POSITIVE (NEGATIVE); PROTEIN, URINE AUTO 1+ mg/dL (NEGATIVE); RBC, URINE AUTO 94 /HPF (0-3); SPECIFIC GRAVITY URINE AUTO 1.017 (1.002-1.035); SQUAMOUS EPITHELIAL CELL UR AU 0 /HPF (0-6); WBC, URINE AUTO TNTC /HPF (0-3)
== END ==
LOC: M SFHCPLAZ 09:59
PROVIDERS: ATTEND Internal Medicine Hematology
DX: Z01.818 Encounter for other preprocedural examination (principal)

== ENCOUNTER → 2021-10-28 | Outpatient (CLI) | payer OTHER | LOC: M LABSMTC 09:23 | PROVIDERS: ATTEND Anesthesiology | DX: Z01.812 Encounter for preprocedural laboratory examination (principal) ==

== ENCOUNTER → 2021-11-21 | Outpatient (REF) | payer OTHER ==
[2021-11-21 17:16] LABS: APPEARANCE, URINE CLOUDY (CLEAR); BACTERIA, URINE AUTO 1+ (NEGATIVE); BILIRUBIN, URINE AUTO NEGATIVE (NEGATIVE); BLOOD, URINE BLOOD 1+ (NEGATIVE); COLOR, URINE YELLOW (YELLOW); GLUCOSE, URINE (UA) AUTO NEGATIVE (NEGATIVE); KETONE, URINE AUTO NEGATIVE (NEGATIVE); LEUKOCYTE ESTERASE, URINE AUTO 3+ (NEGATIVE); MUCUS, URINE SMALL (NEGATIVE); NITRITE, URINE AUTO POSITIVE (NEGATIVE); PROTEIN, URINE AUTO 1+ mg/dL (NEGATIVE); RBC, URINE AUTO 11 /HPF (0-3); SPECIFIC GRAVITY URINE AUTO 1.014 (1.002-1.035); SQUAMOUS EPITHELIAL CELL UR AU 0 /HPF (0-6); UROBILINOGEN, URINE AUTO 0.2 mg/dL (0.0-2.0); WBC, URINE AUTO TNTC /HPF (0-3)
== END ==
LOC: M SMT 16:35
PROVIDERS: ATTEND Urology
DX: R30.0 Dysuria (principal)

== ENCOUNTER → 2022-05-06 | Outpatient (CLI) | payer OTHER | LOC: M RAD 17:18 | PROVIDERS: ATTEND Urology | DX: Z96.0 Presence of urogenital implants (principal) ==

== ENCOUNTER → 2022-07-14 | Outpatient (CLI) | payer OTHER ==
[~2022-07-14] MED LIST changes: +ALBU2.5V10 INH; +MONT-5 PO; -SING10TA32 PO
[2022-07-14 15:46] LABS: BASO # 0.1 10^3/uL (0.0-0.2); BASO % 0.7 % (0.0-1.0); EOS # 0.2 10^3/uL (0.0-0.5); EOS % 1.8 % (0.0-3.0); HEMATOCRIT 42.8 % (42.0-52.0); HEMOGLOBIN 13.1 g/dl (13.5-17.5); LYMPH # 2.8 10^3/uL (1.5-5.0); LYMPH % 27.6 % (24.0-44.0); MEAN CORPUSCULAR HEMOGLOBIN 26.5 pg (27.0-33.0); MEAN CORPUSCULAR HGB CONC 30.6 g/dl (32.0-36.5); MEAN CORPUSCULAR VOLUME 86.6 fl (80.0-96.0); MONO % 9.3 % (2.0-8.0); NEUTROPHILS # 6.1 10^3/uL (1.5-8.5); NEUTROPHILS % 59.8 % (36.0-66.0); PLATELET COUNT, AUTOMATED 303 10^3/uL (150-450); RED BLOOD COUNT 4.94 10^6/uL (4.30-6.10); WHITE BLOOD COUNT 10.2 10^3/uL (4.0-10.0)
[2022-07-14 15:47] LABS: APPEARANCE, URINE CLOUDY (CLEAR); BACTERIA, URINE AUTO 3+ (NEGATIVE); BILIRUBIN, URINE AUTO NEGATIVE (NEGATIVE); BLOOD, URINE BLOOD 2+ (NEGATIVE); COLOR, URINE YELLOW (YELLOW); GLUCOSE, URINE (UA) AUTO NEGATIVE (NEGATIVE); KETONE, URINE AUTO NEGATIVE (NEGATIVE); LEUKOCYTE ESTERASE, URINE AUTO 3+ (NEGATIVE); NITRITE, URINE AUTO POSITIVE (NEGATIVE); PROTEIN, URINE AUTO 1+ mg/dL (NEGATIVE); RBC, URINE AUTO 61 /HPF (0-3); SPECIFIC GRAVITY URINE AUTO 1.012 (1.002-1.035); SQUAMOUS EPITHELIAL CELL UR AU 0 /HPF (0-6); UROBILINOGEN, URINE AUTO 0.2 mg/dL (0.0-2.0); WBC, URINE AUTO TNTC /HPF (0-3)
[2022-07-14 16:18] LABS: BLOOD UREA NITROGEN 16 MG/DL (9-23); CALCIUM LEVEL 9.1 MG/DL (8.3-10.6); CARBON DIOXIDE LEVEL 30 MMOL/L (20-31); CHLORIDE LEVEL 105 MMOL/L (98-107); CREATININE FOR GFR 0.84 MG/DL (0.70-1.30); GLOMERULAR FILTRATION RATE > 60.0 (>49); GLUCOSE, FASTING 79 MG/DL (74-106); POTASSIUM SERUM 4.6 MMOL/L (3.5-5.1); SODIUM LEVEL 135 MMOL/L (136-145)
== END ==
LOC: M LAB 15:07
PROVIDERS: ATTEND Physician Assistant
DX: N20.1 Calculus of ureter (principal)

== ENCOUNTER → 2022-07-15 | Outpatient (CLI) | payer OTHER | LOC: M LABSMTC 11:57 | PROVIDERS: ATTEND Anesthesiology | DX: Z01.818 Encounter for other preprocedural examination (principal); Z11.52 Encounter for screening for COVID-19 ==

== ENCOUNTER → 2022-07-17 | Day surgery (SDC) | payer OTHER ==
[~2022-07-17] VITALS: Ht 179.1 cm; Wt 95.3 kg
[~2022-07-17] MED LIST changes: +ACETAMINOPHEN 1000MG 100ML IV BAG As Ordered ONE; +ISOVUE-300 61% 100ML VIAL As Ordered ONE; +KETOROLAC 60MG 2ML VIAL As Ordered ONE; +LIDOCAINE 2% 100MG/5ML SDV (FOR ANES.) As Ordered ONE; +LR 1,000 ML IV SCH; +MIDAZOLAM INJ 2MG/2ML VIAL As Ordered ONE; +ONDANSETRON 4MG 2ML VIAL As Ordered ONE; +ceFAZolin SOD 2 GM in IV 1 EA IV ONE; +fentaNYL 100 MCG/2 ML INJECTION As Ordered ONE; +propofoL 200 MG/20 ML VIAL As Ordered ONE
[2022-07-17 06:35] VITALS: BP 150/78
== END | disposition home or self-care (01) ==
LOC: M SDC 06:10
PROVIDERS: ATTEND Urology
DX: Z53.09 Procedure and treatment not carried out because of other contraindication (principal)

== ENCOUNTER → 2022-08-05 | Outpatient (CLI) | payer OTHER ==
[~2022-08-05] MED LIST changes: -ACETAMINOPHEN 1000MG 100ML IV BAG As Ordered ONE; -ISOVUE-300 61% 100ML VIAL As Ordered ONE; -KETOROLAC 60MG 2ML VIAL As Ordered ONE; -LIDOCAINE 2% 100MG/5ML SDV (FOR ANES.) As Ordered ONE; -LR 1,000 ML IV SCH; -MIDAZOLAM INJ 2MG/2ML VIAL As Ordered ONE; -ONDANSETRON 4MG 2ML VIAL As Ordered ONE; -ceFAZolin SOD 2 GM in IV 1 EA IV ONE; -fentaNYL 100 MCG/2 ML INJECTION As Ordered ONE; -propofoL 200 MG/20 ML VIAL As Ordered ONE
== END ==
LOC: M PLAIMG 13:03
PROVIDERS: ATTEND Physician Assistant
DX: R91.8 Other nonspecific abnormal finding of lung field (principal)

== ENCOUNTER → 2022-08-07 | Outpatient (CLI) | payer OTHER ==
[2022-08-07 18:46] LABS: HEMATOCRIT 40.3 % (42.0-52.0); HEMOGLOBIN 12.7 g/dl (13.5-17.5); MEAN CORPUSCULAR HEMOGLOBIN 27.4 pg (27.0-33.0); MEAN CORPUSCULAR HGB CONC 31.5 g/dl (32.0-36.5); PLATELET COUNT, AUTOMATED 289 10^3/uL (150-450); RED BLOOD COUNT 4.63 10^6/uL (4.30-6.10)
[2022-08-07 18:49] LABS: APPEARANCE, URINE CLOUDY (CLEAR); BACTERIA, URINE AUTO 2+ (NEGATIVE); BILIRUBIN, URINE AUTO NEGATIVE (NEGATIVE); BLOOD, URINE BLOOD 2+ (NEGATIVE); COLOR, URINE YELLOW (YELLOW); GLUCOSE, URINE (UA) AUTO NEGATIVE (NEGATIVE); KETONE, URINE AUTO NEGATIVE (NEGATIVE); LEUKOCYTE ESTERASE, URINE AUTO 3+ (NEGATIVE); MUCUS, URINE SMALL (NEGATIVE); NITRITE, URINE AUTO POSITIVE (NEGATIVE); PROTEIN, URINE AUTO 2+ mg/dL (NEGATIVE); RBC, URINE AUTO 177 /HPF (0-3); SPECIFIC GRAVITY URINE AUTO 1.017 (1.002-1.035); SQUAMOUS EPITHELIAL CELL UR AU 0 /HPF (0-6); UROBILINOGEN, URINE AUTO 0.2 mg/dL (0.0-2.0); WBC, URINE AUTO TNTC /HPF (0-3)
[2022-08-07 19:16] LABS: BLOOD UREA NITROGEN 33 MG/DL (9-23); CALCIUM LEVEL 9.3 MG/DL (8.3-10.6); CARBON DIOXIDE LEVEL 26 MMOL/L (20-31); CHLORIDE LEVEL 103 MMOL/L (98-107); CREATININE FOR GFR 0.93 MG/DL (0.70-1.30); GLOMERULAR FILTRATION RATE > 60.0 (>49); GLUCOSE, FASTING 89 MG/DL (74-106); POTASSIUM SERUM 4.1 MMOL/L (3.5-5.1); SODIUM LEVEL 137 MMOL/L (136-145)
== END ==
LOC: M LAB 18:14
PROVIDERS: ATTEND Urology
DX: N20.0 Calculus of kidney (principal)

== ENCOUNTER 2022-08-17 06:12 | Day surgery (SDC) | payer OTHER ==
[~2022-08-17] VITALS: Ht 177.8 cm; Wt 97.0 kg
[~2022-08-17 06:12] MED LIST changes: +BACTDSTA PO
[2022-08-17] MEDS ORDERED: ceFAZolin SOD 2 GM in IV 1 EA IV ONE (06:15)
[2022-08-17] MEDS ORDERED: ISOVUE-300 61% 100ML VIAL As Ordered ONE (07:15)
[2022-08-17] MEDS ORDERED: propofoL 200 MG/20 ML VIAL As Ordered ONE (07:17)
[2022-08-17] MEDS ORDERED: LIDOCAINE 2% 100MG/5ML SDV (FOR ANES.) As Ordered ONE (07:17)
[2022-08-17] MEDS ORDERED: MIDAZOLAM INJ 2MG/2ML VIAL As Ordered ONE (07:17)
[2022-08-17] MEDS ORDERED: ONDANSETRON 4MG 2ML VIAL As Ordered ONE (07:17)
[2022-08-17] MEDS ORDERED: fentaNYL 100 MCG/2 ML INJECTION As Ordered ONE (07:18)
[2022-08-17] MEDS ORDERED: PHENYLephrine 500MCG 5ML (100MCG/ML) SYRINGE As Ordered ONE (07:52)
[2022-08-17] MEDS ORDERED: ACETAMINOPHEN 1000MG 100ML IV BAG As Ordered ONE (08:06)
[2022-08-17] MEDS ORDERED: ePHEDrine SULFATE 25 MG/5 ML(5MG/ML) SYRINGE As Ordered ONE (08:26)
[2022-08-17] MEDS ORDERED: LACRILUBE (AKWA TEARS) OPHTH OINT 3.5GM As Ordered ONE (08:33)
[2022-08-17] MEDS ORDERED: HYDROMORPHONE HCL 0.5 MG/ 0.5 ML SYRINGE IV PRN (08:50)
[2022-08-17] MEDS ORDERED: fentaNYL 100 MCG/2 ML INJECTION IV PRN (08:50)
[2022-08-17] MEDS ORDERED: LR 1,000 ML IV SCH (08:50)
[2022-08-17] MEDS ORDERED: oxyCODONE 5MG TAB PO PRN (08:50)
[2022-08-17] MEDS ORDERED: ONDANSETRON 4MG 2ML VIAL IV PRN (08:50)
[2022-08-17] MEDS ORDERED: PERCOCET 5MG/325MG TAB PO PRN (09:20)
[2022-08-17 10:00] VITALS: BP 129/78
== END 2022-08-17 10:08 | disposition home or self-care (01) ==
LOC: M SDC 06:12
PROVIDERS: ATTEND Urology
DX: N20.2 Calculus of kidney with calculus of ureter (principal); Z96.0 Presence of urogenital implants; I10 Essential (primary) hypertension; E11.9 Type 2 diabetes mellitus without complications; I25.2 Old myocardial infarction; E78.00 Pure hypercholesterolemia, unspecified; I25.10 Atherosclerotic heart disease of native coronary artery without angina pectoris; R01.1 Cardiac murmur, unspecified; R33.9 Retention of urine, unspecified; J44.9 Chronic obstructive pulmonary disease, unspecified; M54.2 Cervicalgia; N39.0 Urinary tract infection, site not specified; J30.1 Allergic rhinitis due to pollen; Z79.899 Other long term (current) drug therapy; Z79.51 Long term (current) use of inhaled steroids; Z79.84 Long term (current) use of oral hypoglycemic drugs; Z79.2 Long term (current) use of antibiotics
CPT/HCPCS: 52356; 74420; 82365; C1769; C1894; C2617; J0131; J0690; J1100; J2250; J2370; J2405; J3010; Q9967

== ENCOUNTER → 2022-09-14 | Outpatient (REF) | payer OTHER ==
[2022-09-15 08:46] LABS: APPEARANCE, URINE CLOUDY (CLEAR); BACTERIA, URINE AUTO 2+ (NEGATIVE); BILIRUBIN, URINE AUTO NEGATIVE (NEGATIVE); BLOOD, URINE BLOOD 2+ (NEGATIVE); CALCIUM OXALATE CRYSTALS SMALL; COLOR, URINE AMBER (YELLOW); GLUCOSE, URINE (UA) AUTO NEGATIVE (NEGATIVE); KETONE, URINE AUTO TRACE mg/dL (NEGATIVE); LEUKOCYTE ESTERASE, URINE AUTO 3+ (NEGATIVE); MUCUS, URINE SMALL (NEGATIVE); NITRITE, URINE AUTO POSITIVE (NEGATIVE); PROTEIN, URINE AUTO 1+ mg/dL (NEGATIVE); RBC, URINE AUTO 25 /HPF (0-3); SPECIFIC GRAVITY URINE AUTO 1.023 (1.002-1.035); SQUAMOUS EPITHELIAL CELL UR AU 0 /HPF (0-6); UROBILINOGEN, URINE AUTO 0.2 mg/dL (0.0-2.0); WBC, URINE AUTO TNTC /HPF (0-3)
== END ==
LOC: M SMT 15:18
PROVIDERS: ATTEND Urology
DX: N39.0 Urinary tract infection, site not specified (principal)

== ENCOUNTER → 2022-10-19 | Outpatient (REF) | payer OTHER | LOC: M SMT 16:54 | PROVIDERS: ATTEND Urology | DX: N20.0 Calculus of kidney (principal) ==

== ENCOUNTER → 2023-03-04 | Outpatient (CLI) | payer OTHER ==
[~2023-03-04] MED LIST changes: -CEFD300C41 PO; +CEFD300C42 PO
== END ==
LOC: M RAD 12:37
PROVIDERS: ATTEND Nurse Practitioner Family
DX: N50.89 Other specified disorders of the male genital organs (principal)

== ENCOUNTER → 2023-07-01 | Outpatient (REF) | payer OTHER ==
[~2023-07-01] MED LIST changes: +CEFD1CAP9 PO; -CEFD300C42 PO; -RISP-7 PO; +RISP0.5T82 PO
[2023-07-01 17:17] LABS: APPEARANCE, URINE CLOUDY (CLEAR); BACTERIA, URINE AUTO 1+ (NEGATIVE); BILIRUBIN, URINE AUTO NEGATIVE (NEGATIVE); BLOOD, URINE BLOOD NEGATIVE (NEGATIVE); CALCIUM OXALATE CRYSTALS SMALL; COLOR, URINE AMBER (YELLOW); GLUCOSE, URINE (UA) AUTO NEGATIVE (NEGATIVE); KETONE, URINE AUTO NEGATIVE (NEGATIVE); LEUKOCYTE ESTERASE, URINE AUTO 3+ (NEGATIVE); MUCUS, URINE SMALL (NEGATIVE); NITRITE, URINE AUTO POSITIVE (NEGATIVE); PROTEIN, URINE AUTO 1+ mg/dL (NEGATIVE); RBC, URINE AUTO 6 /HPF (0-3); SPECIFIC GRAVITY URINE AUTO 1.026 (1.002-1.035); SQUAMOUS EPITHELIAL CELL UR AU 0 /HPF (0-6); WBC, URINE AUTO TNTC /HPF (0-3)
== END ==
LOC: M SFHCPLAZ 16:56
PROVIDERS: ATTEND Family Medicine
DX: N39.0 Urinary tract infection, site not specified (principal)

== ENCOUNTER 2025-02-06 15:38 | Inpatient (IN) | payer OTHER, SELFPAY ==
[~2025-02-06] VITALS: Ht 177.8 cm; Wt 91.9 kg
[~2025-02-06 15:38] MED LIST changes: -FLOM0.4C39 PO; +TAMS-18 PO
[2025-02-06 16:36] LABS: BASO # 0.1 10^3/uL (0.0-0.2); BASO % 0.6 % (0.0-1.0); EOS # 0.3 10^3/uL (0.0-0.5); EOS % 1.5 % (0.0-3.0); LYMPH # 2.3 10^3/uL (1.5-5.0); LYMPH % 12.5 % (24.0-44.0); MONO # 0.9 10^3/uL (0.0-0.8); MONO % 5.1 % (2.0-8.0); NEUTROPHILS # 14.5 10^3/uL (1.5-8.5); NEUTROPHILS % 78.8 % (36.0-66.0); PLATELET COUNT, AUTOMATED 459 10^3/uL (150-450)
[2025-02-06] MEDS: IPRATROPIUM 0.5 MG/ALBUTEROL 2.5 MG INH SOL UD 3 ML NEB SCH ×2 (16:38→20:00)
[2025-02-06 16:50] LABS: CALCIUM LEVEL 8.8 MG/DL (8.3-10.6); CARBON DIOXIDE LEVEL 22 MMOL/L (20-31); CHLORIDE LEVEL 103 MMOL/L (98-107); CREATININE FOR GFR 0.90 MG/DL (0.70-1.30); GLOMERULAR FILTRATION RATE > 90.0 (>49); POTASSIUM SERUM 4.2 MMOL/L (3.5-5.1); SODIUM LEVEL 139 MMOL/L (136-145)
[2025-02-06] MEDS ORDERED: ISOVUE-370 76% 100 ML VIAL As Ordered ONE (16:54)
[2025-02-06 16:59] LABS: ABG BASE EXCESS 1.0 (-2.0-2.0); ABG HCO3 24.6 MMOL/L (22.0-26.0); ABG O2 SATURATION 96.1 % (95.0-99.0); ABG PARTIAL PRESSURE CO2 36.1 mmHg (35.0-45.0); ABG PARTIAL PRESSURE O2 79.3 mmHg (75.0-100.0); ABG STANDARD HCO3 25.3 MMOL/L. (22.0-26.0); ABG TOTAL CO2 25.7 MMOL/L (23.0-31.0); ABG pH (ARTERIAL) 7.452 UNITS (7.350-7.450)
[2025-02-06] MEDS: KETOROLAC 30 MG/ML 1 ML VIAL IV ONE (17:15)
[2025-02-06] MEDS: cefTRIAXone SOD 1 GM in DEXTROSE 5% (D5W) ADV/MINI-BAG 50 ML IV ONE (18:34)
[2025-02-06] MEDS: DOXYCYCLINE HYCLATE 100 MG TABLET PO ONE (18:34)
[2025-02-06] MEDS ORDERED: HOME MED LIST COMPLETE! XX SCH (19:00)
[2025-02-06] MEDS: SODIUM CHLORIDE HYPERTONIC 3% 4ML NEB SOL INH SCH (20:00)
[2025-02-06] MEDS ORDERED: MAALOX 30 ML SUSP *UDC PO PRN (20:15)
[2025-02-06] MEDS ORDERED: MOM 30 ML SUSPENSION UDC PO PRN (20:15)
[2025-02-06] MEDS ORDERED: ACETAMINOPHEN 325 MG TAB PO PRN (20:15)
[2025-02-06] MEDS ORDERED: ALBUTEROL SULFATE 2.5 MG/0.5 ML INH CONCENTRATE NEB SOLN INH PRN ×2 (20:20→20:25)
[2025-02-06] MEDS ORDERED: DEXTROSE 50% 50 ML SYRINGE IV PRN (20:35)
[2025-02-06] MEDS ORDERED: GLUCAGON INJ 1 MG VIAL SC PRN (20:35)
[2025-02-06] MEDS ORDERED: GLUCOSE 4 GM CHEW PO PRN (20:35)
[2025-02-06] MEDS: INSULIN LISPRO (NovoLOG) PER UNIT SC SCH (21:00)
[2025-02-06 21:43] LABS: HIV 1&2 SCREEN NEGATIVE (NEGATIVE)
[2025-02-06 22:00] VITALS: BP 138/76; TEMP 98.7; O2SAT 95
[2025-02-06] MEDS: guaiFENesin ER TABLET 600 MG TAB PO SCH (22:33)
[2025-02-07] VITALS: BP 132/67; TEMP 98.8; O2SAT 92
[2025-02-07] MEDS: LR 1,000 ML IV SCH (00:04)
[2025-02-07 04:00] VITALS: BP 132/66; TEMP 98.4; O2SAT 94
[2025-02-07 06:33] LABS: BASO # 0.0 10^3/uL (0.0-0.2); BASO % 0.3 % (0.0-1.0); EOS # 0.0 10^3/uL (0.0-0.5); EOS % 0.0 % (0.0-3.0); LYMPH # 1.2 10^3/uL (1.5-5.0); LYMPH % 7.8 % (24.0-44.0); MONO # 0.5 10^3/uL (0.0-0.8); MONO % 3.3 % (2.0-8.0); NEUTROPHILS # 14.0 10^3/uL (1.5-8.5); NEUTROPHILS % 87.1 % (36.0-66.0); PLATELET COUNT, AUTOMATED 415 10^3/uL (150-450)
[2025-02-07 06:59] LABS: CALCIUM LEVEL 9.0 MG/DL (8.3-10.6); CARBON DIOXIDE LEVEL 26 MMOL/L (20-31); CHLORIDE LEVEL 104 MMOL/L (98-107); CREATININE FOR GFR 0.71 MG/DL (0.70-1.30); GLOMERULAR FILTRATION RATE > 90.0 (>49); MAGNESIUM LEVEL 2.1 MG/DL (1.8-2.4); POTASSIUM SERUM 4.7 MMOL/L (3.5-5.1); SODIUM LEVEL 141 MMOL/L (136-145)
[2025-02-07] MEDS: NS (Normal Saline) 0.9% 1,000 ML IV ONE ×2 (07:21→08:43)
[2025-02-07 08:00] VITALS: BP 142/81; TEMP 99.2; O2SAT 96
[2025-02-07] MEDS ORDERED: predniSONE 20 MG TAB PO SCH (08:00)
[2025-02-07 08:38] LABS: CHOLESTEROL LEVEL 127.0 MG/DL (<200); CHOLESTEROL RISK RATIO 2.93 (<5); LDL CHOLESTEROL 73.0 MG/DL (<100); NON-HDL-C 83.8 MG/DL; TRIGLYCERIDES LEVEL 54.0 MG/DL (<150)
[2025-02-07] MEDS: CETIRIZINE 10 MG TAB PO SCH (08:41)
[2025-02-07] MEDS: INSULIN LISPRO (NovoLOG) PER UNIT SC SCH (08:42)
[2025-02-07] MEDS: cefTRIAXone SOD 2 GM in DEXTROSE 5% (D5W) ADV/MINI-BAG 50 ML IV SCH (08:42)
[2025-02-07] MEDS: AZITHROMYCIN 250 MG TABLET PO SCH (08:43)
[2025-02-07] MEDS: ENOXAPARIN 40 MG/0.4 ML SYRINGE (J1650 PER 10MG) SC SCH (08:44)
[2025-02-07] MEDS ORDERED: PANTOPRAZOLE 40MG VIAL IV SCH (09:00)
[2025-02-07 09:14] LABS: ESTIMATED AVERAGE GLUCOSE 120.0 MG/DL (60-110)
[2025-02-07 12:00] VITALS: BP 145/72; TEMP 98.3; O2SAT 95
[2025-02-07] MEDS: NICOTINE 21 MG/24 HR 1 EA TRANSDERMAL TD SCH (12:08)
[2025-02-07] MEDS: BUDESONIDE 0.5 MG/2 ML INHALATION SUSPENSION NEB SCH (12:19)
[2025-02-07] MEDS: MUPIROCIN 2% OINT 22 GM TUBE TOP SCH (12:48)
[2025-02-07] MEDS ORDERED: SPIR1CAP INH (14:29)
[2025-02-07] MEDS ORDERED: PRED10TA2 PO (14:29)
[2025-02-07] MEDS ORDERED: PRIL20TA2 PO (14:29)
[2025-02-07] MEDS ORDERED: CEFD300CAP PO (14:29)
[2025-02-07] MEDS ORDERED: NICO21PAT TD (14:29)
[2025-02-07] MEDS ORDERED: MUCI1TAB16 PO (14:29)
[2025-02-07] MEDS ORDERED: DOXY100C3 PO (14:29)
[2025-02-07] MEDS ORDERED: VENTAER INH (14:29)
== END 2025-02-07 14:44 | disposition left against medical advice (07) | DRG 720 ==
LOC: M ED 15:38 → M ED INP 20:11 → EEVIPCON 20:11 → M ICU 21:55
PROVIDERS: ADMIT Student in an Organized Health Care Education/Training Program; ATTEND General Practice
DX: A41.9 Sepsis, unspecified organism (principal); J18.9 Pneumonia, unspecified organism; E87.20 Acidosis, unspecified; J44.0 Chronic obstructive pulmonary disease with (acute) lower respiratory infection; J43.9 Emphysema, unspecified; I25.10 Atherosclerotic heart disease of native coronary artery without angina pectoris; E78.5 Hyperlipidemia, unspecified; E11.9 Type 2 diabetes mellitus without complications; F32.A Depression, unspecified; I10 Essential (primary) hypertension; F17.200 Nicotine dependence, unspecified, uncomplicated; B95.62 Methicillin resistant Staphylococcus aureus infection as the cause of diseases classified elsewhere; F41.9 Anxiety disorder, unspecified; Z95.5 Presence of coronary angioplasty implant and graft; N40.0 Benign prostatic hyperplasia without lower urinary tract symptoms; Z91.148 Patient's other noncompliance with medication regimen for other reason; Z79.84 Long term (current) use of oral hypoglycemic drugs; Z79.899 Other long term (current) drug therapy